=== PATIENT | male | born 1945 | race Caucasian/White ===

== ENCOUNTER 2016-05-30 16:37 | Emergency (ER) | payer OTHER ==
[~2016-05-30] VITALS: Ht 175.3 cm; Wt 84.4 kg
[~2016-05-30 16:37] MED LIST: ASPEC81 PO; METH5TAB63 PO; PRVC20 PO
[2016-05-30 16:55] VITALS: TEMP 36.8; Ht 175.3 cm; Wt 84.4 kg
[2016-05-30] MEDS ORDERED: ASPI81TA21 PO (17:11)
[2016-05-30] MEDS ORDERED: PRAV40TA2 PO (17:11)
[2016-05-30] MEDS ORDERED: SODIUM CHLORIDE 0.9% 1000ML 1,000 ML IV STA (17:17)
[2016-05-30] MEDS ORDERED: SODIUM CHLORIDE 0.9% 500ML 500 ML IV STA ×2 (17:17→18:21)
--- NOTE | 2016-05-30 17:21 | EMERGENCY ROOM VISIT NOTE ---
History Report prepared by Ollie: Galen Arrington Under the Supervision of: Dr. King Villagomez M.D. First contact with patient: 17:09 Chief Complaint: WEAKNESS Stated Complaint: WEAKNESS Nursing Triage Summary: patient brought in by ems patient reports weakness of legs around 12:30 while he was clearing brush outside patient reports hx of arthritis in back History of Present Illness The patient is a 71 year old male who presents to the Emergency Room by EMS with complaints of persistent weakness beginning earlier today. He notes he did not feel weak this morning, but after doing some yard work for a couple hours, he noted feeling weak and "rubbery" from the hips on down. He adds that getting into his tractor became difficult, and that he was sweating while doing yard work. The patient denies having any weakness in his arms, and did not pass out or lose consciousness. He reports that he is not getting much quality sleep over the past few years as he wakes up throughout the night to take care of his dogs. He denies having any chest pain, shortness of breath, vomiting, dark or blood stools, or dark urine. He reports that he does not drink as much fluids as he should. The patient states having a history of arthritis. Source of History: patient Onset: earlier today Position: leg (bilateral), other (hips bilaterally) Quality: other (weakness; "rubbery") Timing: other (persistent) Associated Symptoms: No LOC, No SOB, No chest pain, No urinary symptoms (no dark colored urine), No vomiting, No weakness (in arms) Note: The patient denies having any dark or bloody stools. Review of Systems See HPI for pertinent positives & negatives. A total of 10 systems reviewed and were otherwise negative. Past Medical & Surgical Medical Problems: (1) Esophageal Reflux (2) Headache (3) Hypertension Nos (4) Neuralgia/Neuritis Nos (5) Palpitations Family History FHx: hypertension Social History Smoking Status: Former Smoker Alcohol Use: none Drug Use: none Marital Status: Housing Status: lives with family Occupation Status: retired Current/Historical Medications Scheduled Aspirin Enteric Coated (Ecotrin Or Generic), 81 MG PO DAILY B-Complex Vitamins (Vitamin B Complex), 1 TAB PO QAM Pbblujdnjy-Xcnhpyiyloyiu-Yktel (Butalbital/APAP/Caffeine 50-300-40 mg), 1 TAB PO PRN UD Famotidine (Famotidine), 20 MG PO QAM Fish Oil ([place]-3), 1 CAP PO BID Methimazole (Tapazole), 5 PO BID Metoprolol Succinate (Metoprolol Succinate ER), 37.5 MG PO QPM Multivitamin (Multivitamin), 1 TAB PO DAILY Pravastatin Sodium (Pravastatin Sodium), 40 MG PO DAILY Tamsulosin HCl (Tamsulosin HCl), 0.4 MG PO DAILY Allergies Coded Allergies: Morphine (Verified Allergy, Mild, `, 09/21/14) Simvastatin (Verified Allergy, Unknown, MYALGIA, 05/30/16) Physical Exam Vital Signs Date Time Temp Pulse Resp B/P Pulse Ox O2 Delivery O2 Flow Rate FiO2 05/30/16 19:28 54 18 146/81 99 05/30/16 17:40 49 142/70 54 148/78 62 115/75 05/30/16 17:08 56 05/30/16 16:55 36.8 58 18 169/74 100 Room Air Physical Exam GENERAL: Patient is in no acute distress. HEENT: No acute trauma, normocephalic atraumatic, mucous membranes moist, no nasal congestion, no scleral icterus. NECK: No stridor, no adenopathy, no meningismus, trachea is midline. LUNGS: Clear to auscultation bilaterally, no wheeze, no rhonchi, breath sounds equal. HEART: Without murmurs gallops or rubs, regular rate and rhythm. ABDOMEN: Soft, nontender, bowel sounds positive, no hernias, no peritonitis. EXTREMITIES: No cyanosis or edema, full range of motion of all the joints without pain or difficulty, no signs for acute trauma. NEUROLOGIC: Oriented x 3, no acute motor or sensory deficits, no focal weakness. No cerebellar dysfunction or pronator drift. No speech slur or facial droop. SKIN: No rash, no jaundice, no diaphoresis. Medical Decision & Procedures ER Provider Diagnostic Interpretation: Orthostatic vital signs are positive. X ray results and stated below per my interpretation and radiologist interpretation. Other radiology results and stated below per my review and radiologist interpretation: CHEST ONE VIEW PORTABLE FINDINGS: The cardiac and mediastinal contours are normal. There is no evidence of focal pulmonary consolidation. There is no evidence of failure. No pleural effusions are visualized. IMPRESSION: No active disease in the chest. Electronically signed by: Golden Jordan M.D. 05/30/2016 6:24 PM Dictated Date/Time: 05/30/2016 6:24 PM Laboratory Results 05/30/16 17:39 Red Blood Count 4.56, Mean Corpuscular Volume 93.4, Mean Corpuscular Hemoglobin 32.9, Mean Corpuscular Hemoglobin Concent 35.2, Mean Platelet Volume 10.3, Neutrophils (%) (Auto) 59.4, Lymphocytes (%) (Auto) 26.9, Monocytes (%) (Auto) 10.8, Eosinophils (%) (Auto) 2.4, Basophils (%) (Auto) 0.4, Neutrophils # (Auto ) 4.02, Lymphocytes # (Auto) 1.82, Monocytes # (Auto) 0.73, Eosinophils # (Auto ) 0.16, Basophils # (Auto) 0.03 05/30/16 17:39 Test 05/30/16 16:41 05/30/16 17:39 Urine Color YELLOW Urine Appearance CLEAR (CLEAR) Urine pH 7.0 (4.5-7.5) Urine Specific [place] 1.011 (1.000-1.030) Urine Protein NEG (NEG) Urine Glucose (UA) NEG (NEG) Urine Ketones NEG (NEG) Urine Occult Blood NEG (NEG) Urine Nitrite NEG (NEG) Urine Bilirubin NEG (NEG) Urine Urobilinogen NEG (NEG) Urine Leukocyte Esterase NEG (NEG) White Blood Count 6.77 K/uL (4.8-10.8) Red Blood Count 4.56 M/uL (4.7-6.1) Hemoglobin 15.0 g/dL (14.0-18.0) Hematocrit 42.6 % (42-52) Mean Corpuscular Volume 93.4 fL (80-100) Mean Corpuscular Hemoglobin 32.9 pg (25-34) Mean Corpuscular Hemoglobin Concent 35.2 g/dl (32-36) Platelet Count 171 K/uL (130-400) Mean Platelet Volume 10.3 fL (7.4-10.4) Neutrophils (%) (Auto) 59.4 % Lymphocytes (%) (Auto) 26.9 % Monocytes (%) (Auto) 10.8 % Eosinophils (%) (Auto) 2.4 % Basophils (%) (Auto) 0.4 % Neutrophils # (Auto) 4.02 K/uL (1.4-6.5) Lymphocytes # (Auto) 1.82 K/uL (1.2-3.4) Monocytes # (Auto) 0.73 K/uL (0.11-0.59) Eosinophils # (Auto) 0.16 K/uL (0-0.5) Basophils # (Auto) 0.03 K/uL (0-0.2) RDW Standard Deviation 43.2 fL (36.4-46.3) RDW Coefficient of Variation 12.7 % (11.5-14.5) Immature Granulocyte % (Auto) 0.1 % Immature Granulocyte # (Auto) 0.01 K/uL (0.00-0.02) Anion Gap 6.0 mmol/L (3-11) Est Creatinine Clear Calc Drug Dose 44.5 ml/min Estimated GFR () 53.1 Estimated GFR (Non- 45.9 BUN/Creatinine Ratio 13.0 (10-20) Calcium Level 9.2 mg/dl (8.5-10.1) Total Bilirubin 0.5 mg/dl (0.2-1) Aspartate Amino Transf (AST/SGOT) 18 U/L (15-37) Alanine Aminotransferase (ALT/SGPT) 23 U/L (12-78) Alkaline Phosphatase 62 U/L (45-117) Total Protein 7.9 gm/dl (6.4-8.2) Albumin 4.3 gm/dl (3.4-5.0) Globulin 3.6 gm/dl (2.5-4.0) Albumin/Globulin Ratio 1.2 (0.9-2) Thyroid Stimulating Hormone (TSH) 2.420 uIu/ml (0.300-4.500) Laboratory results reviewed by me. Medications Administered Medications (Trade) Dose Ordered Sig/Antoine Route Start Time Stop Time Status Last Admin Dose Admin Sodium Chloride 500 ml @ 999 mls/hr Q31M STAT IV 05/30/16 17:17 05/30/16 17:47 DC 05/30/16 17:17 999 MLS/HR Sodium Chloride 1,000 ml @ 125 mls/hr Q8H STAT IV 05/30/16 17:17 05/30/16 21:53 DC 05/30/16 17:17 125 MLS/HR Sodium Chloride (Nss 500ml) 500 ml @ 999 mls/hr Q31M STAT IV 05/30/16 18:21 05/30/16 18:51 DC 05/30/16 18:21 999 MLS/HR ECG Indication: weakness Rate (beats per minute): 52 Rhythm: sinus bradycardia Findings: no acute ischemic change, no ectopy ED Course 1711: The patient was evaluated in room C5. A complete history and physical exam was performed. 1716: Ordered NSS 1,000 ml @ 125 mls/hr IV, and NSS 500 ml 999 mls/hr IV. 1820: Ordered NSS 500 ml @ 999 mls/hr IV. 1909: I updated the patient. 1919: Reevaluated the patient. Discussed results and discharge instructions: He verbalized understanding and agreement. The patient is ready for discharge. Medical Decision Differentials include dehydration, electrolyte imbalance, anemia, cardiac ischemia, dysrhythmia, UTI, and ND. There is no leukocytosis or concerning anemia. Renal panel testing shows some mild renal insufficiency but this appears baseline looking back at previous testing. No significant electrolyte abnormality requiring correction. There was no hepatitis. The patient appears to be in a euthyroid state. EKG shows a sinus bradycardia, no acute ischemia. Chest film shows no pneumonia or CHF. Orthostatic vital signs were positive. Urinalysis does not show evidence for infection. The patient received over 1 L of IV saline, he feels markedly better. He has no focal neurologic deficits on exam. He is not febrile or toxic. I do think he can be discharged home. He was encouraged to stay better hydrated. He will follow with his doctor's office. He will return here for worsening symptoms. Impression Primary Impression: Weakness Additional Impression: Dehydration Scribe Attestation The scribe's documentation has been prepared under my direction and personally reviewed by me in its entirety. I confirm that the note above accurately reflects all work, treatment, procedures, and medical decision making performed by me. Departure Information Dispostion Home / Self-Care Referrals Sivakumar Lopez M.D. (PCP) Patient Instructions My [facility] Additional Instructions stay better hydrated as we discussed all lab testing was ok follow with bronwyn geiger for a recheck return if worsening Problem Qualifiers
[2016-05-30] MEDS ORDERED: BUTA1CAP20 PO (17:28)
[2016-05-30 17:49] LABS: URINE APPEARANCE CLEAR (CLEAR); URINE BILIRUBIN NEG (NEG); URINE COLOR YELLOW; URINE NITRITE NEG (NEG); URINE SPECIFIC GRAVITY 1.011 (1.000-1.030); UROBILINOGEN NEG (NEG); ZZUR CULT IF INDIC CLEAN CATCH NO
[2016-05-30 17:51] LABS: MANUAL MICROSCOPIC REQUIRED? NO; REVIEW REQ? NO
[2016-05-30] MEDS ORDERED: B-COTAB18 PO (17:58)
[2016-05-30 18:02] LABS: BASO % 0.4 %; BASO ABS # 0.03 K/uL (0-0.2); COMPLETE YES; EOS % 2.4 %; HEMATOCRIT 42.6 % (42-52); IG% 0.1 %; LYMPH % 26.9 %; LYMPH ABS # 1.82 K/uL (1.2-3.4); MEAN CELL VOLUME 93.4 fL (80-100); MEAN CORPUSCULAR HEMOGLOBIN 32.9 pg (25-34); MEAN CORPUSCULAR HGB CONC 35.2 g/dl (32-36); MEAN PLATELET VOLUME 10.3 fL (7.4-10.4); MONO % 10.8 %; NEUT % 59.4 %; PLATELET COUNT 171 K/uL (130-400); RED BLOOD COUNT 4.56 M/uL (4.7-6.1); WHITE BLOOD COUNT 6.77 K/uL (4.8-10.8)
[2016-05-30 18:25] LABS: CALCIUM 9.2 mg/dl (8.5-10.1); CREATININE 1.5 mg/dl (0.60-1.40); POTASSIUM 4.3 mmol/L (3.5-5.1)
--- NOTE | 2016-05-30 18:26 | DIAGNOSTIC IMAGING REPORT ---
CHEST ONE VIEW PORTABLE CLINICAL HISTORY: Altered mental status. Weakness. COMPARISON STUDY: 09/21/2014 FINDINGS: The cardiac and mediastinal contours are normal. There is no evidence of focal pulmonary consolidation. There is no evidence of failure. No pleural effusions are visualized.[ IMPRESSION: No active disease in the chest. Electronically signed by: Golden Jordan M.D. 05/30/2016 6:24 PM Dictated Date/Time: 05/30/2016 6:24 PM
[2016-05-30 18:41] LABS: ALB/GLOB RATIO 1.2 (0.9-2); THYROID STIMULATING HORMONE 2.42 uIu/ml (0.300-4.500)
[2016-05-30] MEDS ORDERED: OMEG10007 PO (19:06)
[2016-05-30] MEDS ORDERED: MULT-506 PO (19:06)
[2016-05-30] MEDS ORDERED: FAMO1TAB47 PO (19:19)
[2016-05-30] MEDS ORDERED: FLM4 PO (19:19)
[2016-05-30 19:28] VITALS: BP 146/81; PULSE 54; O2SAT 99
[2016-05-30] MEDS ORDERED: TPRSR/25 PO (21:11)
== END 2016-05-30 19:29 | disposition home or self-care (01) ==
LOC: EDBD 16:37 → C.EDC 16:40
DX: R53.1 Weakness (principal); E86.0 Dehydration; R29.898 Other symptoms and signs involving the musculoskeletal system; K21.9 Gastro-esophageal reflux disease without esophagitis; I10 Essential (primary) hypertension; Z79.899 Other long term (current) drug therapy; Z79.82 Long term (current) use of aspirin; Z87.891 Personal history of nicotine dependence; Z82.49 Family history of ischemic heart disease and other diseases of the circulatory system

== ENCOUNTER 2016-06-01 10:00 | Emergency (ER) | payer OTHER ==
[~2016-06-01] VITALS: Ht 172.7 cm; Wt 84.9 kg
[~2016-06-01 10:00] MED LIST changes: -ASPEC81 PO; +ASPI81TA21 PO; +B-COTAB18 PO; +BUTA1CAP20 PO; +FAMO1TAB47 PO; +FLM4 PO; +MULT-506 PO; +OMEG10007 PO; +PRAV40TA2 PO; -PRVC20 PO; +TPRSR/25 PO
[2016-06-01 10:11] VITALS: TEMP 36.5; Ht 172.7 cm; Wt 84.9 kg
--- NOTE | 2016-06-01 10:53 | EMERGENCY ROOM VISIT NOTE ---
History Report prepared by Ollie: Alfonzo Gonzalez Under the Supervision of: Dr. Bryson Peters M.D. First contact with patient: 10:34 Chief Complaint: WEAKNESS Stated Complaint: WEAKNESS History of Present Illness The patient is a 71 year old male who presents to the Emergency Room with complaints of constant weakness for the past few days. The patient states that he has additionally been feeling pressure around his eyes and cheeks. The patient says that from his hips down he has felt weak. The patient denies any rhinorrhea, urinary symptoms, and any recent falls. He states that he had left eye surgery recently. The patient states that the people around him have been sick. He denies any family history of muscle diseases. Source of History: patient Onset: few days ago Position: other (global) Quality: other (weakness) Timing: constant Associated Symptoms: No urinary symptoms Note: Associated symptoms: Pressure around his eyes and cheeks Review of Systems See HPI for pertinent positives & negatives. A total of 10 systems reviewed and were otherwise negative. Past Medical & Surgical Medical Problems: (1) Esophageal Reflux (2) Headache (3) Hypertension Nos (4) Neuralgia/Neuritis Nos (5) Palpitations Family History FHx: hypertension Social History Smoking Status: Former Smoker Alcohol Use: none Drug Use: none Marital Status: Housing Status: lives with family Occupation Status: retired Current/Historical Medications Scheduled Aspirin Enteric Coated (Ecotrin Or Generic), 81 MG PO DAILY B-Complex Vitamins (Vitamin B Complex), 1 TAB PO QAM Puwvcyqrap-Byocxvaggnzmk-Isptk (Butalbital/APAP/Caffeine 50-300-40 mg), 1 TAB PO PRN UD Famotidine (Famotidine), 20 MG PO QAM Fish Oil ([place]-3), 1 CAP PO BID Methimazole (Tapazole), 5 PO BID Metoprolol Succinate (Metoprolol Succinate ER), 37.5 MG PO QPM Multivitamin (Multivitamin), 1 TAB PO DAILY Pravastatin Sodium (Pravastatin Sodium), 40 MG PO DAILY Tamsulosin HCl (Tamsulosin HCl), 0.4 MG PO DAILY Allergies Coded Allergies: Morphine (Verified Allergy, Mild, `, 09/21/14) Simvastatin (Verified Allergy, Unknown, MYALGIA, 05/30/16) Physical Exam Vital Signs Date Time Temp Pulse Resp B/P Pulse Ox O2 Delivery O2 Flow Rate FiO2 06/01/16 12:14 50 18 97/71 98 Room Air 06/01/16 10:36 68 06/01/16 10:11 36.5 60 18 150/74 97 Room Air Physical Exam GENERAL: Patient is well appearing and in minimal distress. HEENT: No acute trauma, normocephalic atraumatic, mucous membranes moist, no nasal congestion, no scleral icterus. NECK: No stridor, no adenopathy, no meningismus, trachea is midline. LUNGS: No dyspnea. Clear to auscultation and equal bilaterally. No wheeze, no rhonchi. HEART: Regular rate and rhythm. No murmurs, rubs, gallops appreciated. ABDOMEN: Soft, nontender, bowel sounds positive, no masses appreciated, no peritonitis. BACK: No midline tenderness, no CVA tenderness EXTREMITIES: Normal motion all extremities, no cyanosis, no edema. NEUROLOGIC: Alert and oriented, no acute motor or sensory deficits, no focal weakness, cranial nerves grossly intact. SKIN: No rash, no jaundice, no diaphoresis. Medical Decision & Procedures ER Provider Diagnostic Interpretation: CT results as stated below per interpretation by me and the radiologist: CT HEAD WITHOUT CONTRAST (CT) CLINICAL HISTORY: Generalized Weakness COMPARISON STUDY: 09/21/2014 TECHNIQUE: Axial CT of the brain is performed from the vertex to the skull base. IV contrast was not administered for this examination. CT DOSE: 614.27 mGy.cm FINDINGS: No intra or extra-axial mass lesions are visualized. There is no CT evidence of acute cortical infarction. There is no evidence of midline shift. There is no acute hemorrhage. No calvarial fractures are visualized. There are minimal white matter hypodensities likely on a small vessel basis. There is no evidence of pathologic ventricular dilatation. There is no evidence of acute sinusitis IMPRESSION: No acute intracranial findings Electronically signed by: Golden Jordan M.D. 06/01/2016 11:23 AM Dictated Date/Time: 06/01/2016 11:23 AM Laboratory Results 06/01/16 10:34 Red Blood Count 4.66, Mean Corpuscular Volume 92.3, Mean Corpuscular Hemoglobin 31.8, Mean Corpuscular Hemoglobin Concent 34.4, Mean Platelet Volume 10.0, Neutrophils (%) (Auto) 56.9, Lymphocytes (%) (Auto) 28.2, Monocytes (%) (Auto) 11.2, Eosinophils (%) (Auto) 3.0, Basophils (%) (Auto) 0.5, Neutrophils # (Auto ) 3.21, Lymphocytes # (Auto) 1.59, Monocytes # (Auto) 0.63, Eosinophils # (Auto ) 0.17, Basophils # (Auto) 0.03 06/01/16 10:34 Test 06/01/16 10:34 White Blood Count 5.64 K/uL (4.8-10.8) Red Blood Count 4.66 M/uL (4.7-6.1) Hemoglobin 14.8 g/dL (14.0-18.0) Hematocrit 43.0 % (42-52) Mean Corpuscular Volume 92.3 fL (80-100) Mean Corpuscular Hemoglobin 31.8 pg (25-34) Mean Corpuscular Hemoglobin Concent 34.4 g/dl (32-36) Platelet Count 176 K/uL (130-400) Mean Platelet Volume 10.0 fL (7.4-10.4) Neutrophils (%) (Auto) 56.9 % Lymphocytes (%) (Auto) 28.2 % Monocytes (%) (Auto) 11.2 % Eosinophils (%) (Auto) 3.0 % Basophils (%) (Auto) 0.5 % Neutrophils # (Auto) 3.21 K/uL (1.4-6.5) Lymphocytes # (Auto) 1.59 K/uL (1.2-3.4) Monocytes # (Auto) 0.63 K/uL (0.11-0.59) Eosinophils # (Auto) 0.17 K/uL (0-0.5) Basophils # (Auto) 0.03 K/uL (0-0.2) RDW Standard Deviation 42.9 fL (36.4-46.3) RDW Coefficient of Variation 12.8 % (11.5-14.5) Immature Granulocyte % (Auto) 0.2 % Immature Granulocyte # (Auto) 0.01 K/uL (0.00-0.02) Erythrocyte Sedimentation Rate 11 mm/hr (0-14) Anion Gap 4.0 mmol/L (3-11) Est Creatinine Clear Calc Drug Dose 54.5 ml/min Estimated GFR () 63.2 Estimated GFR (Non- 54.5 BUN/Creatinine Ratio 10.9 (10-20) Calcium Level 9.7 mg/dl (8.5-10.1) Phosphorus Level 2.9 mg/dl (2.5-4.9) Magnesium Level 2.2 mg/dl (1.8-2.4) Total Bilirubin 0.5 mg/dl (0.2-1) Direct Bilirubin 0.1 mg/dl (0-0.2) Aspartate Amino Transf (AST/SGOT) 19 U/L (15-37) Alanine Aminotransferase (ALT/SGPT) 25 U/L (12-78) Alkaline Phosphatase 65 U/L (45-117) Total Creatine Kinase 99 U/L (39-308) Troponin I < 0.015 ng/ml (0-0.045) C-Reactive Protein < 0.29 mg/dl (0-0.29) Total Protein 7.9 gm/dl (6.4-8.2) Albumin 4.2 gm/dl (3.4-5.0) Lipase 230 U/L (73-393) Laboratory results as reviewed by me. ECG Indication: weakness Rate (beats per minute): 53 Rhythm: sinus bradycardia Findings: no acute ischemic change, no ectopy ED Course 1037: The patient was evaluated in room B8. A complete history and physical exam was performed. 1207: Reevaluated the patient, and he states that he is feeling well, and he will follow up with his doctor this week. Discussed results and discharge instructions: He verbalized understanding and agreement. The patient is ready for discharge. Medical Decision Differential: Sepsis, Infectious (UTI/Pneumonia/Meningitis/etc), Metabolic/ Electrolyte Abnormality, Cardiac, Hepatic, Endocrine, Toxicologic, Neurologic, amongst other pathologies entertained. 71 yr old male arrives with complaint of generalized weakness. Still able to ambulate though notes he just feels weak and rubbery, mostly in legs. No back pain nor evidence of spinal pathology. Good strength bilateral legs without urine nor bowel issues. No evidence of rheumatic/inflammatory issue as with normal WBC/CRP this is highly unlikely. CT head is negative for acute findings. No evidence of sepsis. Stable and in no distress. No indication for admission at this time. This is second trip here with essentially unremarkable examination and labs. He already has a follow up appointment this week. Aware of symptoms requiring emergent return. Impression Primary Impression: Generalized weakness Scribe Attestation The scribe's documentation has been prepared under my direction and personally reviewed by me in its entirety. I confirm that the note above accurately reflects all work, treatment, procedures, and medical decision making performed by me. Departure Information Dispostion Home / Self-Care Referrals Sivakumar Lopez M.D. (PCP) Forms HOME CARE DOCUMENTATION FORM, IMPORTANT VISIT INFORMATION Patient Instructions ED Weakness Maci SANTANA [facility]
[2016-06-01 11:21] LABS: BASO % 0.5 %; BASO ABS # 0.03 K/uL (0-0.2); COMPLETE YES; IG% 0.2 %; LYMPH % 28.2 %; LYMPH ABS # 1.59 K/uL (1.2-3.4); MEAN CELL VOLUME 92.3 fL (80-100); MEAN CORPUSCULAR HEMOGLOBIN 31.8 pg (25-34); MEAN CORPUSCULAR HGB CONC 34.4 g/dl (32-36); MONO % 11.2 %; NEUT % 56.9 %; PLATELET COUNT 176 K/uL (130-400); RED BLOOD COUNT 4.66 M/uL (4.7-6.1); WHITE BLOOD COUNT 5.64 K/uL (4.8-10.8)
--- NOTE | 2016-06-01 11:25 | DIAGNOSTIC IMAGING REPORT ---
CT HEAD WITHOUT CONTRAST (CT) CLINICAL HISTORY: Generalized Weakness COMPARISON STUDY: 09/21/2014 TECHNIQUE: Axial CT of the brain is performed from the vertex to the skull base. IV contrast was not administered for this examination. CT DOSE: 614.27 mGy.cm FINDINGS: No intra or extra-axial mass lesions are visualized. There is no CT evidence of acute cortical infarction. There is no evidence of midline shift. There is no acute hemorrhage. No calvarial fractures are visualized. There are minimal white matter hypodensities likely on a small vessel basis. There is no evidence of pathologic ventricular dilatation. There is no evidence of acute sinusitis IMPRESSION: No acute intracranial findings Electronically signed by: Golden Jordan M.D. 06/01/2016 11:23 AM Dictated Date/Time: 06/01/2016 11:23 AM
[2016-06-01 11:43] LABS: BLOOD UREA NITROGEN 14 mg/dl (7-18); BUN/CREATININE RATIO 10.9 (10-20); C-REACTIVE PROTEIN < 0.29 mg/dl (0-0.29); CALCIUM 9.7 mg/dl (8.5-10.1); CARBON DIOXIDE 30 mmol/L (21-32); CHLORIDE 105 mmol/L (98-107); GLUCOSE 96 mg/dl (70-99); MAGNESIUM 2.2 mg/dl (1.8-2.4); POTASSIUM 4.2 mmol/L (3.5-5.1); SODIUM 139 mmol/L (136-145)
[2016-06-01 11:49] LABS: ALKALINE PHOSPHATASE 65 U/L (45-117); ALT/SGPT 25 U/L (12-78); AST/SGOT 19 U/L (15-37); PHOSPHORUS 2.9 mg/dl (2.5-4.9)
[2016-06-01 12:14] VITALS: BP 97/71; PULSE 50; O2SAT 98
== END 2016-06-01 12:30 | disposition home or self-care (01) ==
LOC: C.EDB 10:02
DX: R53.1 Weakness (principal); I10 Essential (primary) hypertension; K21.9 Gastro-esophageal reflux disease without esophagitis; Z87.891 Personal history of nicotine dependence; Z98.890 Other specified postprocedural states; Z82.49 Family history of ischemic heart disease and other diseases of the circulatory system; Z79.82 Long term (current) use of aspirin; Z79.899 Other long term (current) drug therapy

== ENCOUNTER → 2016-06-03 | Outpatient (CLI) | payer OTHER ==
[2016-06-03 11:40] LABS: ALT/SGPT 22 U/L (12-78); AST/SGOT 14 U/L (15-37); BLOOD UREA NITROGEN 17 mg/dl (7-18); BUN/CREATININE RATIO 12.9 (10-20); CALCIUM 9.5 mg/dl (8.5-10.1); CARBON DIOXIDE 31 mmol/L (21-32); CHLORIDE 104 mmol/L (98-107); CHOLESTEROL 193 mg/dl (0-200); GLUCOSE 101 mg/dl (70-99); POTASSIUM 4.2 mmol/L (3.5-5.1); SODIUM 139 mmol/L (136-145); TRIGLYCERIDES 152 mg/dl (0-150); VERY LOW DENSITY LIPOPROT CALC 30 mg/dl
[2016-06-03 11:49] LABS: ALB/GLOB RATIO 1.1 (0.9-2); ALKALINE PHOSPHATASE 64 U/L (45-117); CHOLESTEROL/HDL RATIO 3.8; HDL CHOLESTEROL 51 mg/dl; LDL CHOLESTEROL CALCULATED 112 mg/dl
== END | disposition home or self-care (01) ==
LOC: C.LABBC 07:32
PROVIDERS: ATTEND Internal Medicine
DX: E05.90 Thyrotoxicosis, unspecified without thyrotoxic crisis or storm (principal); N18.3 Chronic kidney disease, stage 3 (moderate)

== ENCOUNTER → 2016-12-19 | Outpatient (CLI) | payer OTHER ==
[2016-12-19 13:52] LABS: ALT/SGPT 24 U/L (12-78); AST/SGOT 19 U/L (15-37); BLOOD UREA NITROGEN 17 mg/dl (7-18); BUN/CREATININE RATIO 12.8 (10-20); CALCIUM 9.6 mg/dl (8.5-10.1); CARBON DIOXIDE 28 mmol/L (21-32); CHLORIDE 109 mmol/L (98-107); GLUCOSE 99 mg/dl (70-99); POTASSIUM 4.6 mmol/L (3.5-5.1); SODIUM 141 mmol/L (136-145)
[2016-12-19 14:02] LABS: ALB/GLOB RATIO 1.1 (0.9-2); ALKALINE PHOSPHATASE 60 U/L (45-117)
== END | disposition home or self-care (01) ==
LOC: C.LABBC 10:54
PROVIDERS: ATTEND Internal Medicine
DX: K21.9 Gastro-esophageal reflux disease without esophagitis (principal)

== ENCOUNTER → 2017-03-14 | Outpatient (CLI) | payer OTHER ==
[2017-03-14 13:43] LABS: BASO % 0.2 %; BASO ABS # 0.02 K/uL (0-0.2); COMPLETE YES; EOS % 2.5 %; HEMATOCRIT 41.7 % (42-52); IG% 0.2 %; LYMPH % 18.1 %; LYMPH ABS # 1.46 K/uL (1.2-3.4); MEAN CELL VOLUME 96.8 fL (80-100); MEAN CORPUSCULAR HEMOGLOBIN 32.9 pg (25-34); MEAN CORPUSCULAR HGB CONC 34.1 g/dl (32-36); MEAN PLATELET VOLUME 10.7 fL (7.4-10.4); MONO % 9.5 %; NEUT % 69.5 %; PLATELET COUNT 171 K/uL (130-400); RED BLOOD COUNT 4.31 M/uL (4.7-6.1); WHITE BLOOD COUNT 8.07 K/uL (4.8-10.8)
[2017-03-14 13:58] LABS: CREATININE, URINE 53.2 mg/dl; URINE PROTIEN/CREAT RATIO 0.2 (0-0.2); URINE TOTAL PROTEIN 8.3 mg/dl (0-11.9)
[2017-03-14 14:00] LABS: BLOOD UREA NITROGEN 22 mg/dl (7-18); BUN/CREATININE RATIO 16.5 (10-20); CALCIUM 9.2 mg/dl (8.5-10.1); CARBON DIOXIDE 29 mmol/L (21-32); CHLORIDE 108 mmol/L (98-107); CREATININE 1.36 mg/dl (0.60-1.40); GLUCOSE 91 mg/dl (70-99); MAGNESIUM 2.1 mg/dl (1.8-2.4); POTASSIUM 5.3 mmol/L (3.5-5.1); SODIUM 140 mmol/L (136-145)
[2017-03-14 14:17] LABS: URINE APPEARANCE CLEAR (CLEAR); URINE BILIRUBIN NEG (NEG); URINE COLOR YELLOW; URINE EPITHELIAL CELL AUTO 0-5 /lpf (0-5); URINE NITRITE NEG (NEG); URINE SPECIFIC GRAVITY 1.011 (1.000-1.030); UROBILINOGEN NEG (NEG)
[2017-03-14 14:19] LABS: MANUAL MICROSCOPIC REQUIRED? NO; REVIEW REQ? NO
[2017-03-17 16:38] LABS: ALBUMIN 4.4 G/DL (3.8-4.8); GAMMA GLOBULIN 1.1 G/DL (0.8-1.7); TOTAL PROTEIN 6.9 G/DL (6.2-8.3)
== END | disposition home or self-care (01) ==
LOC: C.LABBC 10:59
PROVIDERS: ATTEND Internal Medicine Nephrology
DX: N18.3 Chronic kidney disease, stage 3 (moderate) (principal)

== ENCOUNTER → 2017-06-04 | Outpatient (CLI) | payer OTHER ==
[2017-06-04 10:40] LABS: BASO % 0.4 %; BASO ABS # 0.02 K/uL (0-0.2); EOS % 3.9 %; EOS ABS # 0.22 K/uL (0-0.5); HEMATOCRIT 43.7 % (42-52); HEMOGLOBIN 15.1 g/dL (14.0-18.0); IG# 0.01 K/uL (0.00-0.02); LYMPH % 26.1 %; LYMPH ABS # 1.46 K/uL (1.2-3.4); MEAN CELL VOLUME 94.2 fL (80-100); MEAN CORPUSCULAR HEMOGLOBIN 32.5 pg (25-34); MEAN CORPUSCULAR HGB CONC 34.6 g/dl (32-36); MEAN PLATELET VOLUME 10.1 fL (7.4-10.4); MONO % 12.3 %; MONO ABS # 0.69 K/uL (0.11-0.59); NEUT % 57.1 %; PLATELET COUNT 197 K/uL (130-400); RED CELL DISTRIBUTION WIDTH CV 13.3 % (11.5-14.5); RED CELL DISTRIBUTION WIDTH SD 45.6 fL (36.4-46.3)
[2017-06-04 10:58] LABS: ALT/SGPT 22 U/L (12-78); AST/SGOT 15 U/L (15-37); BLOOD UREA NITROGEN 24 mg/dl (7-18); CALCIUM 9.4 mg/dl (8.5-10.1); CARBON DIOXIDE 32 mmol/L (21-32); CREATININE 1.38 mg/dl (0.60-1.40); GLUCOSE 103 mg/dl (70-99); POTASSIUM 4.4 mmol/L (3.5-5.1); SODIUM 139 mmol/L (136-145)
[2017-06-04 11:06] LABS: ALKALINE PHOSPHATASE 64 U/L (45-117); CHOLESTEROL 231 mg/dl (0-200); LDL CHOLESTEROL CALCULATED 148 mg/dl; TOTAL PROTEIN 7.6 gm/dl (6.4-8.2)
== END | disposition home or self-care (01) ==
LOC: C.LABBC 07:36
PROVIDERS: ATTEND Internal Medicine
DX: K21.9 Gastro-esophageal reflux disease without esophagitis (principal); E78.5 Hyperlipidemia, unspecified; M48.061 Spinal stenosis, lumbar region without neurogenic claudication; E05.90 Thyrotoxicosis, unspecified without thyrotoxic crisis or storm; J44.9 Chronic obstructive pulmonary disease, unspecified; M46.96 Unspecified inflammatory spondylopathy, lumbar region; N18.3 Chronic kidney disease, stage 3 (moderate); M25.512 Pain in left shoulder

== ENCOUNTER → 2017-06-10 | Outpatient (CLI) | payer OTHER ==
[2017-06-10 14:55] LABS: ALBUMIN 4.1 gm/dl (3.4-5.0); BLOOD UREA NITROGEN 22 mg/dl (7-18); CALCIUM 9.3 mg/dl (8.5-10.1); CARBON DIOXIDE 24 mmol/L (21-32); CREATININE 1.35 mg/dl (0.60-1.40); GLUCOSE 98 mg/dl (70-99); POTASSIUM 4.3 mmol/L (3.5-5.1); SODIUM 138 mmol/L (136-145)
[2017-06-10 14:56] LABS: PHOSPHORUS 2.8 mg/dl (2.5-4.9)
== END | disposition home or self-care (01) ==
LOC: C.LABBC 09:05
PROVIDERS: ATTEND Internal Medicine Nephrology
DX: N18.3 Chronic kidney disease, stage 3 (moderate) (principal)

== ENCOUNTER 2023-05-14 11:55 | Observation (INO) ==
--- NOTE | 2023-05-14 12:56 | XRay Report ---
XR chest 1V not portable HISTORY: 78 years-old Male Chest pain, nonspecific COMPARISON: 04/05/2023 TECHNIQUE: PA view of the chest FINDINGS: Cardiomediastinal and hilar silhouettes are within normal limits. No pneumothorax, pleural effusion o r airspace consolidation. Spondylotic spurring of the spine. Bones appear grossly intact. Mild upper prosthetic levoscoliosis. IMPRESSION: No acute process. ACT 112: Negative or not required by law. The above report was generated using voice recognition software. It may contain grammatical, syntax o r spelling errors. Electronically signed by: Rafy Ramos M.D. 05/14/2023 12:54 PM
[2023-05-14 12:57] LABS: Basophils # (auto) 0.02 K/uL (0.00-0.20); Basophils % (auto) 0.2 %; Eosinophils # (auto) 0.04 K/uL (0.00-0.50); Eosinophils % (auto) 0.3 %; Hematocrit (blood only) 41.7 % (42.0-52.0); Hemoglobin 14.2 g/dl (14.0-18.0); Immature Granulocytes # (auto) 0.07 K/uL (0.01-0.20); Immature Granulocytes % (auto) 0.6 %; Lymphocytes # (auto) 1.64 K/uL (1.20-3.40); Lymphocytes % (auto) 13.2 %; Mean Corpuscular Hemoglobin 32.3 pg (25.0-34.0); Mean Corpuscular Hgb Conc 34.1 g/dL (32.0-36.0); Monocytes # (auto) 1.28 K/uL (0.11-0.59); Monocytes % (auto) 10.3 %; Neutrophils # (auto) 9.38 K/uL (1.40-6.50); Neutrophils % (auto) 75.4 %; Platelet Count 232 K/uL (130-400); RDW Coefficient of Variation 13.1 % (11.5-14.5); RDW Standard Deviation 45.4 fL (36.4-46.3); Red Blood Count 4.39 M/uL (4.70-6.10); White Blood Count 12.43 K/ul (4.8-10.8)
[2023-05-14 13:11] LABS: Albumin Globulin Ratio 1.4 (0.9-2); Albumin Level 4.6 gm/dl (3.4-5.0); BUN Creatinine Ratio 22.8 (10-20); Bilirubin,Total 0.4 mg/dl (0.2-1.0); Calcium 10.1 mg/dl (8.6-10.3); Creatinine Clr Calc Pharmacy 44.1 ml/min; Est GFR (African American) 61.9 ml/min; Est GFR (Non-African American) 53.4 ml/min; Globulin 3.2 gm/dl (2.5-4.0); Potassium 4.9 mmol/L (3.5-5.1); Total Protein 7.8 gm/dl (6.0-8.3)
[2023-05-14 13:15] LABS: Troponin I High Sensitivity 11.2 pg/ml (0-20)
[2023-05-14 13:26] LABS: Partial Thromboplastin Time 27 Seconds (21-31); Prothrombin Time 10.7 Seconds (9.0-12.0)
--- NOTE | 2023-05-14 15:02 | Emergency Department Note ---
Impression & Plan Exertional chest pain ED Provider Note NAME: CARLOS VALVERDE AGE: 78 SEX: M : 1945 ARRIVES VIA: Walk-In INFORMANT: Patient, ED PROVIDER(S): Rasheed Yuan MD CHIEF COMPLAINT: Chest pain, outpatient referral MEDICAL DECISION MAKING: Patient presents due to concern for exertional chest pain that improved with rest some seen in the outpatient setting referred here for further evaluation treatment due to concern for symptoms as well as progressive EKG changes. IV was established and blood work was obtained. Patient's blood work shows a white count of 12 but denies any infectious symptoms. Normal hemoglobin and platelet count. The patient's kidney function creatinine 1.27. Initial troponin negative. Reviewed the patient's EKG does show worsening T wave versions in the lateral and high lateral leads from comparison EKG from April 05 certainly more pronounced in the lateral leads from comparison March 01. Given the patient's exertional symptoms and concern for [place] angina patient was ordered aspirin-itis with the on-call hospital service Dr. Grace and the patient was admitted to the medicine service. Discussion w/ other healthcare providers: Dr. Grace inpatient medicine service Prior /Outside records reviewed: None Differential diagnosis: Cardiac ischemia, aortic dissection, pulmonary embolism, pneumothorax, pneumonia, pericarditis, myocarditis, GERD, cholecystitis, pancreatitis, musculoskeletal, as well as other pathologies were considered. Diagnostics, as interpreted by me: ECG: Sinus bradycardia, rate of 57, normal intervals, normal axis, T wave versions noted in the lateral and high lateral leads. Peaked Ts noted anteriorly. Cardiac monitoring: An order was placed for continuous cardiac monitoring. The monitor shows a rate of 62 with sinus rhythm. Patient was placed on pulse oximetry Medical decision rules: Heart score Imaging studies: I informally interpreted the patient's chest x-ray which does not show obvious pneumonia or pneumothorax with formal report to follow. HPI: Patient presents due to concern for chest pain. The patient states that he has suffered from chest pain in the past but seem to really "catch his attention" yesterday. The patient states that he was going up an incline where he got associated chest tightness in the center of his chest as he was out with his dogs and then subsequently worsened his symptoms but seem to improve with rest. Patient denies any cough or fever no leg swelling. The patient was seen in his primary care office today reviewed his EKG and discussed the symptoms and referred him here for further evaluation. Patient denies any leg swelling or calf pain. No recent surgeries procedures or hospitalizations. PAST MEDICAL HISTORY: See Below PAST SURGICAL HISTORY: See Below SOCIAL HISTORY: See Below HOME MEDICATIONS: See Below ALLERGIES: See Below VITALS: See Below PHYSICAL EXAMINATION: GENERAL: NAD, non-toxic. EYE EXAM: Normal conjunctiva. PERRL, no anisocoria and EOM's grossly intact w/o pain. OROPHARYNX: Moist mucus membranes, grossly normal dentition. NECK: Trachea midline, no stridor. Supple, no nuchal rigidity, no adenopathy, non-tender. No signs of meningismus. FROM of the neck with good chin to chest and neck extension. LUNGS: Clear to auscultation. Normal chest wall mechanics. HEART: NSR, no MRG. ABDOMEN: Abdomen soft, non-tender, no masses, no rebound or guarding. BACK: No CVA TTP. SKIN: No rashes and no bruising. UPPER EXTREMITIES: Upper extremities are grossly normal. LOWER EXTREMITIES: Grossly normal, no edema. Negative Homans' sign bilaterally. NEURO EXAM: A&O x3, cranial nerves II-XII grossly intact, normal speech, moves all 4 extremities. Past Med/Surg History Medical History Lumbosacral facet joint syndrome Coccyx pain Lumbar compression fracture Lumbar spondylosis Claustrophobia Cancer Melanoma s/p excision (back) Osteoarthritis BPH (benign prostatic hyperplasia) Hyperlipidemia Migraine Hx Lumbar canal stenosis Hyperthyroidism on Methimazole Stage 3 chronic kidney disease Arthritis Mitral valve prolapse Per patient, no recent echo, no murmur noted per multiple [facility] anesthesia evaluations (most recently 01/18/20) Acid reflux Surgical History S/P epidural steroid injection History of esophagogastroduodenoscopy (EGD) History of cholecystectomy History of colonoscopy with polypectomy 2020 History of wisdom tooth extraction Family History Mother Myocardial infarction Hypertension Father Kidney disease Brother Dyslipidemia Atrial fibrillation Other No family history of adverse response to anesthesia No pertinent family history Denies family history of Ovarian cancer Prostate cancer Diabetes Breast cancer Lung cancer Colorectal cancer Stroke Social History Smoking Status: Former smoker Tobacco Type: Pipe Second Hand Exposure: Yes (SPOUSE/ SON IN LAW SMOKED); Do You Dip or Chew Tobacco: No; Hx Alcohol Use: No Hx Substance Use: No Preferred Language: Brazilian Communication Ability: Effective Visual Impairment: No Limitations Hearing Ability: Normal Computer Methods Analyst Required: No Beliefs That Will Affect Care: None marital status: / Current Living Situation: Alone Current Living Situation Comment: SON IN LAW AND DAUGHTER current occupational status: retired How many Children do You have: 2 Other Information That Helps Us Care for You: No Feels Safe at Home: Yes Safety Concerns: Feels Safe At This Time Childhood Exposure to Second-Hand Smoke: Yes caffeine: Yes Dental Care, Regularly: Yes Physical Activity Frequency: 1-2 Times per Week Seatbelt Use: always Sunscreen Use: No Assistive Devices: None Allergies Allergies Allergy/AdvReac Type Severity Reaction Status Date / Time morphine Allergy Severe Anaphylaxis Verified 05/14/23 16:42 simvastatin AdvReac Intermediate MYALGIA Verified 05/14/23 16:42 Home Meds Home Medications Medication Instructions Recorded Confirmed omega 3 350 mg-dha 235 mg-epa 90 1 tab PO BID 02/04/18 05/14/23 mg-fish oil 597 mg capsule,delay rel ([place]-3) aspirin 81 mg tablet,delayed 81 mg PO QAM 01/11/20 05/14/23 release ([place] Low Dose Aspirin) cholecalciferol (vitamin D3) 25 25 mcg PO DAILY 06/12/21 05/14/23 mcg (1,000 unit) capsule B-complex with vitamin C 1 tab PO DAILY 02/28/23 05/14/23 methimazole 5 mg tablet 5 mg PO Q OTHER DAY 02/28/23 05/14/23 metoprolol succinate 25 mg 37.5 mg PO QPM 02/28/23 05/14/23 tablet,extended release 24 hr omeprazole 40 mg capsule,delayed 40 mg PO QAM 02/28/23 05/14/23 release Previous Rx's Medication Instructions Recorded valsartan 160 mg tablet 160 mg PO DAILY #90 tabs 04/18/23 pravastatin 80 mg tablet 80 mg PO QPM #90 tabs 01/25/24 Results & Data (ED) Vital Signs Vital Signs - 24 hr 05/14/23 12:13 Temperature 36.5 C Temperature Source Temporal Artery Scan Pulse Rate 78 Respiratory Rate 18 Respiratory Depth Normal Blood Pressure 191/87 H Blood Pressure Mean 121 Blood Pressure Position Sitting Pulse Oximetry 99 Oxygen Delivery Method Room Air Sepsis Recent Fever Within 48 Hours No Sepsis New/Unexplained Change in Mental Status No Sepsis Action Taken by Nursing No Action Required Home Medications Current Medication List: was personally reviewed by me Laboratory Data Attestation: I reviewed the patient's lab results. 05/15/23 06:15 05/15/23 06:15 Lab Results 05/14/23 Range/Units 12:33 WBC 12.43 H (4.8-10.8) K/ul RBC 4.39 L (4.70-6.10) M/uL Hgb 14.2 (14.0-18.0) g/dl Hct 41.7 L (42.0-52.0) % MCV 95.0 (80.0-100.0) fL MCH 32.3 (25.0-34.0) pg MCHC 34.1 (32.0-36.0) g/dL RDW Std Deviation 45.4 (36.4-46.3) fL RDW Coeff of Mei 13.1 (11.5-14.5) % Plt Count 232 (130-400) K/uL MPV 10.0 (9.4-12.4) fL Immature Gran % (Auto) 0.6 % Neut % (Auto) 75.4 % Lymph % (Auto) 13.2 % Richardson % (Auto) 10.3 % Eos % (Auto) 0.3 % Baso % (Auto) 0.2 % Neut # (Auto) 9.38 H (1.40-6.50) K/uL Lymph # (Auto) 1.64 (1.20-3.40) K/uL Richardson # (Auto) 1.28 H (0.11-0.59) K/uL Eos # (Auto) 0.04 (0.00-0.50) K/uL Baso # (Auto) 0.02 (0.00-0.20) K/uL Immature Gran # (Auto) 0.07 (0.01-0.20) K/uL PT 10.7 (9.0-12.0) Seconds INR 1.0 (0.9-1.1) APTT 27 (21-31) Seconds PTT Ratio 1.0 Sodium 140 (136-145) mmol/L Potassium 4.9 (3.5-5.1) mmol/L Chloride 106 (98-107) mmol/L Carbon Dioxide 27 (21-32) mmol/L Anion Gap 7 (3-11) BUN 29 H (6-23) mg/dl Creatinine 1.27 (0.6-1.4) mg/dl Est Cr Clr Drug Dosing 44.1 ml/min Est GFR ( Amer) 61.9 ml/min Est GFR (Non-Af Amer) 53.4 ml/min BUN/Creatinine Ratio 22.8 H (10-20) Glucose 102 H (70-99(Fasting)) mg/dl Calcium 10.1 (8.6-10.3) mg/dl Total Bilirubin 0.4 (0.2-1.0) mg/dl AST 19 (13-39) U/L ALT 18 (7-52) U/L Alkaline Phosphatase 47 (34-104) U/L Troponin I High Sens 11.2 (0-20) pg/ml Total Protein 7.8 (6.0-8.3) gm/dl Albumin 4.6 (3.4-5.0) gm/dl Globulin 3.2 (2.5-4.0) gm/dl Albumin/Globulin Ratio 1.4 (0.9-2) Administered Medications Metoprolol Succinate (Metoprolol Succ 25mg Ext Rel Tab) 37.5 mg PO QPM [facility] Stop: 06/13/23 21:14 Last Admin: 05/14/23 21:21 Dose: Not Given Documented By: [facility] Pravastatin Sodium (Pravastatin Sod 40 Mg Tab) 80 mg PO QPM DI Stop: 06/13/23 21:14 Last Admin: 05/14/23 22:27 Dose: 80 mg Documented By: [facility] Discontinued Medications Aspirin (Aspirin Chew 324 Mg) 324 mg PO NOW STA Stop: 05/14/23 16:04 Last Admin: 05/14/23 16:13 Dose: 324 mg Documented By: ML Imaging Data Radiologist's Impression: Chest X-Ray 05/14/23 12:18 XR chest 1V not portable HISTORY: 78 years-old Male Chest pain, nonspecific COMPARISON: 04/05/2023 TECHNIQUE: PA view of the chest FINDINGS: Cardiomediastinal and hilar silhouettes are within normal limits. No pneumothorax, pleural effusion or airspace consolidation. Spondylotic spurring of the spine. Bones appear grossly intact. Mild upper prosthetic levoscoliosis. IMPRESSION: No acute process. ACT 112: Negative or not required by law. The above report was generated using voice recognition software. It may contain grammatical, syntax or spelling errors. Electronically signed by: Rafy Ramos M.D. 05/14/2023 12:54 PM Discharge Plan Visit Data Chief Complaint: Referred by Doctor Stated Complaint: ABNORMAL EKG ED Provider: Rasheed Yuan Discharge Problem: Exertional chest pain Patient Disposition: Admitted As Inpatient Discharge Instructions Interventions: ED Discharge Assessment Last Done: 05/14/23 18:38
--- NOTE | 2023-05-14 15:08 | Electrocardiogram Report ---
Test Reason : Blood Pressure : / mmHG Vent. Rate : 057 BPM Atrial Rate : 057 BPM P-R Int : 148 ms QRS Dur : 070 ms QT Int : 406 ms P-R-T Axes : 038 013 089 degrees QTc Int : 395 ms Sinus bradycardia T wave abnormality, consider lateral ischemia Abnormal ECG When compared with ECG of 05-APR-2023 14:05, No significant change was found Confirmed by Jose Johnson ([id number]) on 05/14/2023 3:08:16 PM Referred By: Confirmed By:Jose Johnson
[2023-05-14] MEDS: ASPIRIN CHEW 324 MG PO STA (16:13)
--- NOTE | 2023-05-14 16:13 | History & Physical Report ---
Date of Service May 14, 2023 Assessment & Plan (1) Exertional chest pain: Plan: Some concern for EKG changes however these TWI were also present on prior EKGs in February 2018 and Apr 2013 and appear to be lead placement related given similarities in QRS complexes with these EKGs compared to EKGs in interim. Reassuringly he has also had exertion not related to cold air when he is not having chest pains. Resting echocardiogram normal in April 11 therefore no need to repeat this. HEART score 5 - moderate; therefore recommend observation for further workup and will get stress echocardiogram tomorrow and if normal can be discharged. (2) Hypertension: Plan: Continue routine medications (3) Hyperthyroidism: Plan: Continue methimazole. TSH WNL in March - no need to repeat this. (4) Acid reflux: Plan: Switch omeprazole to pantoprazole per hospital formulary Plan VTE Prophylaxis - low risk Diet - heart healthy, NPO after midnight Disposition - observation to PCU Admission and Anticipated Discharge Date Admission Date: May 14, 2023 History of Present Illness Chief Complaint: Exertional chest pain Primary Care Provider: Wilfrid Miranda DO Jorge Luis Pierre is a 78-year-old male who presents to the ER with exertional chest pain. He was sent in by her PCP today due to concerns for crescendo angina. The patient notes previous exertional chest pains related to cold weather for multiple years although yesterday while walking up a steep hill he noted severity 8/10 chest pain relived after about 30 seconds of rest. This morning it happened again with associated shortness of breath with walking up a hill therefore went to see his PCP. However no chest pains with doing raking yard work yesterday. No nausea, palpitations, leg swelling, weight baylee. Pain is central chest pressure. In the office TWI in lateral leads were noted to be present which have not been present on recent EKGs. He has recently been dealing with high blood pressure with increasing valsartan dosing. No prior known coronary artery disease. No significant family history of OR < 60 year olds. Quit smoking 1999 - smoked pipe and cigarettes. No diabetes. No significant family history. He also notes taking omeprazole for heartburn - no problems since starting this. Allergies Allergy/AdvReac Type Severity Reaction Status Date / Time morphine Allergy Severe Anaphylaxis Verified 05/14/23 16:42 simvastatin AdvReac Intermediate MYALGIA Verified 05/14/23 16:42 Home Medications Medication Instructions Recorded Confirmed Type omega 3 350 mg-dha 235 mg-epa 90 1 tab PO BID 02/04/18 05/14/23 History mg-fish oil 597 mg capsule,delay rel ([place]-3) aspirin 81 mg tablet,delayed 81 mg PO QAM 01/11/20 05/14/23 History release ([place] Low Dose Aspirin) cholecalciferol (vitamin D3) 25 25 mcg PO DAILY 06/12/21 05/14/23 History mcg (1,000 unit) capsule B-complex with vitamin C 1 tab PO DAILY 02/28/23 05/14/23 History methimazole 5 mg tablet 5 mg PO Q OTHER DAY 02/28/23 05/14/23 History metoprolol succinate 25 mg 37.5 mg PO QPM 02/28/23 05/14/23 History tablet,extended release 24 hr omeprazole 40 mg capsule,delayed 40 mg PO QAM 02/28/23 05/14/23 History release valsartan 160 mg tablet 160 mg PO DAILY #90 tabs 04/18/23 05/14/23 Rx pravastatin 80 mg tablet 80 mg PO QPM #90 tabs 05/01/23 05/14/23 Rx Past Med/Surg History Medical History Lumbosacral facet joint syndrome Coccyx pain Lumbar compression fracture Lumbar spondylosis Claustrophobia Cancer Osteoarthritis BPH (benign prostatic hyperplasia) Hyperlipidemia Migraine Lumbar canal stenosis Hyperthyroidism Stage 3 chronic kidney disease Arthritis Mitral valve prolapse Acid reflux Surgical History S/P epidural steroid injection History of esophagogastroduodenoscopy (EGD) History of cholecystectomy History of colonoscopy with polypectomy History of wisdom tooth extraction Family History Mother Myocardial infarction Hypertension Father Kidney disease Brother Dyslipidemia Atrial fibrillation Other No family history of adverse response to anesthesia No pertinent family history Denies family history of Ovarian cancer Prostate cancer Diabetes Breast cancer Lung cancer Colorectal cancer Stroke Social History Smoking Status: Former smoker Tobacco Type: Pipe Second Hand Exposure: Yes (SPOUSE/ SON IN LAW SMOKED); Do You Dip or Chew Tobacco: No; Hx Alcohol Use: No Hx Substance Use: No Preferred Language: German Communication Ability: Effective Visual Impairment: No Limitations Hearing Ability: Normal Greenskeeper Supervisor Required: No Beliefs That Will Affect Care: None marital status: / Current Living Situation: Alone Current Living Situation Comment: SON IN LAW AND DAUGHTER current occupational status: retired How many Children do You have: 2 Other Information That Helps Us Care for You: No Feels Safe at Home: Yes Safety Concerns: Feels Safe At This Time Childhood Exposure to Second-Hand Smoke: Yes caffeine: Yes Dental Care, Regularly: Yes Physical Activity Frequency: 1-2 Times per Week Seatbelt Use: always Sunscreen Use: No Assistive Devices: None Review of Systems Review of Systems: All systems reviewed & are unremarkable except as noted in HPI & below Physical Exam Constitutional: WD/WN, vitals as above Eyes: + anicteric sclerae; normal pupil size ENMT: external ear and nose normal, oropharynx normal Respiratory: normal respiratory effort, lungs clear to auscultation Cardiovascular: RRR, no murmur, no edema Gastrointestinal (Abdomen): normal bowel sounds, soft, nontender, no hepatosplenomegaly Musculoskeletal: no cyanosis or clubbing, extremities motor strength 5/5 Skin: no rashes, warm and dry Neurologic: moves all extremities and awake; not confused Psychiatric: A+Ox3, euthymic affect Results & Data Results & Data Vital Signs (Past 12 Hours) Vital Signs Temp Pulse Resp BP Pulse Ox O2 Del Method 05/14/23 12:13 36.5 C 78 18 191/87 H 99 Room Air Laboratory Results Abnormal lab results 05/14/23 Range/Units 12:33 WBC 12.43 H (4.8-10.8) K/ul RBC 4.39 L (4.70-6.10) M/uL Hct 41.7 L (42.0-52.0) % Neut # (Auto) 9.38 H (1.40-6.50) K/uL [place] # (Auto) 1.28 H (0.11-0.59) K/uL BUN 29 H (6-23) mg/dl BUN/Creatinine Ratio 22.8 H (10-20) Glucose 102 H (70-99(Fasting)) mg/dl Diagnostic Findings XR chest 1V not portable HISTORY: 78 years-old Male Chest pain, nonspecific COMPARISON: 04/05/2023 TECHNIQUE: PA view of the chest FINDINGS: Cardiomediastinal and hilar silhouettes are within normal limits. No pneumothorax, pleural effusion or airspace consolidation. Spondylotic spurring of the spine. Bones appear grossly intact. Mild upper prosthetic levoscoliosis. IMPRESSION: No acute process. Medications Administered ER medications given: Aspirin 324 mg p.o. ECG Rate (beats per minute): 57 Rhythm: normal sinus Findings: + T-wave inversion (Lateral) and + ST elevation (Anterior consistent with repolarization variant and V1/V2 which is not new and no ST depression reciprocal changes) Comparison ECG Date: from (Apr 05, 2023) Change: no significant change Code Status & VTE Plan Code Status Full VTE Prophylaxis Plan VTE Prophylaxis will be ordered: Yes PG Care Time/CCT Total # of Minutes Spent Total Time Spent with Patient: Total time spent is greater than 50% in coordination of care (as documented) at patient's floor/unit and/or counseling patient: Coding Level of Care Code 29901 INT INP/OBS CARE 2/55MIN Diagnoses Exertional chest pain R07.9 Primary hypertension I10 Hypertension type: primary hypertension Hyperthyroidism E05.90 Acid reflux K21.9 (2) Hypertension Hypertension type: primary hypertension Qualified Code(s): I10 - Essential (primary) hypertension
[2023-05-14] MEDS: METOPROLOL SUCC 25MG EXT REL TAB PO SCH (21:21)
[2023-05-14] MEDS: PRAVASTATIN SOD 40 MG TAB PO SCH (22:27)
[2023-05-15 06:55] LABS: BUN Creatinine Ratio 23.8 (10-20); Calcium 9.7 mg/dl (8.6-10.3); Creatinine Clr Calc Pharmacy 44.4 ml/min; Est GFR (African American) 62.5 ml/min; Est GFR (Non-African American) 53.9 ml/min; Potassium 4.9 mmol/L (3.5-5.1)
[2023-05-15 06:59] LABS: Troponin I High Sensitivity 11.4 pg/ml (0-20)
[2023-05-15 07:02] LABS: Basophils # (auto) 0.03 K/uL (0.00-0.20); Basophils % (auto) 0.3 %; Eosinophils # (auto) 0.12 K/uL (0.00-0.50); Eosinophils % (auto) 1.3 %; Hematocrit (blood only) 39.8 % (42.0-52.0); Hemoglobin 13.5 g/dl (14.0-18.0); Immature Granulocytes # (auto) 0.05 K/uL (0.01-0.20); Immature Granulocytes % (auto) 0.5 %; Mean Corpuscular Hemoglobin 32.2 pg (25.0-34.0); Mean Corpuscular Hgb Conc 33.9 g/dL (32.0-36.0); Mean Platelet Volume 10.1 fL (9.4-12.4); Monocytes # (auto) 0.94 K/uL (0.11-0.59); Monocytes % (auto) 9.9 %; Neutrophils # (auto) 6.51 K/uL (1.40-6.50); Platelet Count 210 K/uL (130-400); RDW Coefficient of Variation 13.1 % (11.5-14.5); RDW Standard Deviation 45.9 fL (36.4-46.3); Red Blood Count 4.19 M/uL (4.70-6.10); White Blood Count 9.45 K/ul (4.8-10.8)
[2023-05-15] MEDS: ASPIRIN 81 MG ECTAB PO SCH (09:49)
[2023-05-15] MEDS: PANTOprazole 40 MG TAB PO SCH (09:50)
[2023-05-15] MEDS: VALSARTAN 80 MG TAB PO SCH (09:50)
--- NOTE | 2023-05-15 15:01 | XCELERA ---
[id number]
--- NOTE | 2023-05-15 16:14 | Discharge Summary ---
Date of Service May 15, 2023 Admission HPI Per Admitting Provider Jorge Luis Pierre is a 78-year-old male who presents to the ER with exertional chest pain. He was sent in by her PCP today due to concerns for crescendo angina. The patient notes previous exertional chest pains related to cold weather for multiple years although yesterday while walking up a steep hill he noted severity 8/10 chest pain relived after about 30 seconds of rest. This morning it happened again with associated shortness of breath with walking up a hill therefore went to see his PCP. However no chest pains with doing raking yard work yesterday. No nausea, palpitations, leg swelling, weight baylee. Pain is c entral chest pressure. In the office TWI in lateral leads were noted to be present which have not been present on recent EKGs. He has recently been dealing with high blood pressure with increasing valsartan dosing. No prior known coronary artery disease. No significant family history of CA < 60 year olds. Quit smoking 1999 - smoked pipe and cigarettes. No diabetes. No significant family history. He also notes taking omeprazole for heartburn - no problems since starting this. Principal Diagnosis exertional chest pain, possible angina / limited coronary artery disease Discharge Exam PHYSICAL EXAMINATION Last 24h vital signs reviewed, see documentation in flowsheet General: comfortable appearing, no distress, up walking around in room healthy appearing HEENT: Normocephalic, atraumatic, pupils round and equal, sclerae anicteric, no conjunctival injection, moist mucus membranes Lungs: Normal respiratory effort. Clear to auscultation Heart: Regular rate and rhythm, no murmurs. No JVD, no edema Neuro: Alert and oriented x 4, face symmetric, moves 4 extremities well, walks well Psych: Normal affect and behavior Discharge Data Allergies Allergy/AdvReac Type Severity Reaction Status Date / Time morphine Allergy Severe Anaphylaxis Verified 05/14/23 16:42 simvastatin AdvReac Intermediate MYALGIA Verified 05/14/23 16:42 Consultations 05/14/23 15:47 ED Decision to Admit Stat Procedures Performed Treadmill stress echo Hospital Course (1) Exertional chest pain: Some concern for EKG changes however these TWI were also present on prior EKGs in February 2018 and Apr 2013 and appear to be lead placement related given similarities in QRS complexes with these EKGs compared to EKGs in interim. Reassuringly he has also had exertion not related to cold air when he is not having chest pains. Resting echocardiogram normal in April 11 therefore no need to repeat this. HEART score 5 - moderate; therefore recommend observation for further workup and will get stress echocardiogram tomorrow and if normal can be discharged. Serial troponins were negative. No recurrence of chest pain. Had treadmill stress echo. Exercised to 7.7 METS with minimal transient chest discomfort at peak exercise, negative by echocardiographic criteria at 96% max heart rate, markedly abnormal EKG response -per online advertising analyst could be false positive EKG versus limited coronary artery disease, recommended continued medical management and PRN nitroglycerin vs invasive evaluation. Low risk for discharge with outpatient follow up. I discussed with Mr. Pierre and offered cardiology referral / follow up with Dr. Johnson or one of his partners. He prefers strategy of continuing his usual meds (which is a good CAD regimen of ASA/B-tk/ARB/statin) with addition of PRN nitro SL and follow up to discuss with his primary care doctor. If worsening symptoms, would recommend pursuing cardiology evaluation to consider invasive testing. Reviewed outpatient labs - last LDL 120, HDL 50, TG 142 last year. Were not drawn this AM after admission. Recommend recheck lipids soon in outpatient setting and consider changing to high intensity statin. (2) Hypertension: Continue routine medications (3) Hyperthyroidism: Continue methimazole. TSH WNL in March - no need to repeat this. (4) Acid reflux: Plan CKD stage 3 - on ARB and follows with Dr. Butt, jeff Total Time Total Time Spent Total Time Spent (In Minutes): 25 minutes Discharge Plan Discharge Items Patient Disposition: Home - Self-Care Reason For Visit: CHEST PAIN RULE OUT CA Discharge Diagnosis: chest pain Activity: Resume your previous activity Non-emergency contact: Primary Care Provider Call non-emergency contact if: you have any medication questions and your symptoms worsen Follow-up/Referrals: Wilfrid Miranda DO [Primary Care Provider] - Diet: Heart Healthy Addtl Attending Provider Instructions: You were evaluated for chest pain -heart attack was ruled out -you had a stress echo test. you tolerated a strong amount of exercise, which is a good prognosis. your images were normal during maximal exercise. you did have EKG changes - the online advertising analyst said this could be a false-positive or could represent limited coronary disease -the medications you are already on are very good for treating and preventing coronary artery disease -talk to your primary care doctor about rechecking your cholesterol and potentially changing to a stronger "statin" medication -if symptoms change/worsen or if you would consider further testing (heart cath procedure, for example) follow up with Dr. Johnson or one of his partners in cardiology clinic I gave you a prescription for nitroglycerin to use as needed for chest pain -take 1 tablet under the tongue every 5 minutes as needed for chest pain to maximum of three doses -if chest pain is not resolving promptly with nitroglycerin and rest, seek immediate medical attention Candelaria Lopez MD Pending Studies at Discharge: No Stand-Alone Forms: My [facility] Smart Checkout, Smoking Cessation Medications and DC Order Prescriptions: New nitroglycerin 0.4 mg tablet, sublingual 0.4 mg sublingual Q5M PRN (Reason: chest pain) Qty: 25 1RF Rx Instructions: max 3 doses Continued valsartan 160 mg tablet 160 mg PO DAILY Qty: 90 3RF pravastatin 80 mg tablet 80 mg PO QPM Qty: 90 3RF cholecalciferol (vitamin D3) 25 mcg (1,000 unit) capsule 25 mcg PO DAILY [place]-3 350 mg-235 mg- 90 mg-597 mg Capsule,Delayed Release(Dr/Ec) 1 tab PO BID aspirin [Mando Low Dose Aspirin] 81 mg Tablet,Delayed Release (Dr/Ec) 81 mg PO QAM B-complex with vitamin C Tablet 1 tab PO DAILY omeprazole 40 mg capsule,delayed release(DR/EC) 40 mg PO QAM Rx Instructions: TAKE 1 CAPSULE EVERY MORNING methimazole 5 mg tablet 5 mg PO Q OTHER DAY Rx Instructions: TAKE 1 TABLET EVERY OTHER DAY metoprolol succinate 25 mg tablet extended release 24 hr 37.5 mg PO QPM Discharge Orders: Discharge Order (Routine); Ordered 05/15/23 Ordered By: Candelaria Lopez Admission Data Admit Date/Time: 05/14/23 16:08 Attending Provider: Candelaria Lopez Admit Provider: Brad Grace Primary Care Provider: Wilfrid Miranda Other Providers: Brad Grace Coding Level of Care Code 04116 IN/OBS DISCH 30 MIN/LESS Diagnoses Exertional chest pain R07.9 Primary hypertension I10 Hypertension type: primary hypertension Hyperthyroidism E05.90 Acid reflux K21.9
[2023-05-16] MEDS ORDERED: methIMAzole 5 MG TABLET PO SCH (09:00)
== END 2023-05-15 16:29 | disposition home or self-care (01) ==
LOC: ED 11:55 → EDINP 11:55 → SUATTDRO 16:08 → EDINP 18:38 → 2S 20:35

== ENCOUNTER 2024-09-26 10:48 | Inpatient (IN) ==
--- NOTE | 2024-09-26 11:07 | Emergency Department Note ---
Impression & Plan Paresthesias, Lightheadedness ED Provider Note HISTORY OF PRESENT ILLNESS: Patient is an 79-year-old male presenting with numbness and tingling. Patient reports that at 10 AM he was at latter day when he suddenly developed "numbness in my head and nose." He states that symptoms lasted for about 20 to 25 minutes and developed to include numbness in his bilateral upper extremities. He states that symptoms resolved after about [address] minutes and [address] his way here. He states that this is similar to the last 2 times he presented. He denies any chest pain or shortness of breath. He denies any recent falls or head injury. Denies any chiropractic manipulation of his neck. Denies any changes in vision. Denies any headache. Denies any abdominal pain, nausea or vomiting. Patient is on aspirin and Plavix. ROS: as above PHYSICAL EXAM: Constitutional: Patient appears in no acute distress. HENT: Head: Normocephalic and atraumatic. Eyes: EOMI, PERRL Mouth/Throat: Mucous membranes moist. Neck: Trachea midline. Neck supple. Cardiovascular: RRR, No murmurs, rubs or gallops. Intact distal pulses. Pulmonary/Chest: No respiratory distress. Breath sounds clear and equal bilaterally. No wheezes or rales. Abdominal: Abdomen soft, no tenderness, rebound or guarding. Musculoskeletal: No edema, tenderness or deformity noted. Skin: Warm and dry. No rash, erythema, pallor or cyanosis Psychiatric: Appropriate mood and affect for situation. Neurological: Alert and keenly responsive. CN II-XII grossly intact, moving all extremities equally and fully. MDM: - Vitals signs showed hypertension - History obtained via patient. History as above. - Chronic conditions affecting care: CKD stage 3; HTN; hyperthyroidism; HLD; CAD (S/p PCI) - Differential diagnoses include, but are not limited to: CVA; intracranial hemorrhage; ACS; electrolyte abnormality; pneumonia; dehydration - Order placed for continuous cardiac monitoring. At this time, monitor showed rate of 55 bpm with normal sinus rhythm, per my interpretation. - External medical records reviewed. - EKG image interpreted by myself showed normal sinus rhythm. Rate bradycardic at 59 bpm. QT 402. No acute ischemic changes. - Laboratory workup interpreted by myself showed normal WBC; chronic anemia (Hgb 12.5); normal PT/INR; slight hyponatremia (Na 131); CKD (Cr 1.54); normal troponin - CXR image reviewed myself negative for pneumonia, per my interpretation. - CT head wo contrast negative for acute intracranial pathology - CTA head/neck negative for acute pathology - Patient has been seen 3 times in the last 5 days for similar symptoms. Unclear if he is having TIAs at this point, but he has not had aspirin and Plavix already. Will admit for further strokelike symptoms workup. - Discussion was had with casework supervisor about patient's case and need for admission - Hospitalist consulted for admission - Patient admitted to [facility] for further evaluation and management. ASSESSMENT AND PLAN: Diagnosis: Paresthesias; lightheadedness Plan: Admit Past Med/Surg History Problem List (Updated 09/26/24 @ 12:36 by Lissette Paulino MD) Lightheadedness (Acute) Paresthesias (Acute) Lightheadedness (Acute) Generalized weakness (Acute) Hypertension (Acute) Strain of abdominal muscle Presence of stent in coronary artery in patient with coronary artery disease S/P PCI of the ostial to distal L main with 4.0X8mm Xience zuleyma point LEE ANN on 12/16/23 Chest pain Stented coronary artery CAD, multiple vessel Hypertension Hyperthyroidism on Methimazole Mitral valve disease Acid reflux Lumbosacral facet joint syndrome Impaired glucose metabolism Coccyx pain CMC arthritis Thumb pain Degenerative arthritis of thumb Pain of left thumb Lumbar compression fracture Lumbar spondylosis Dyspnea (Chronic) Hyperthyroidism (Chronic) Gallbladder sludge (Chronic) Aortic calcification (Chronic) Hyperlipidemia (Chronic) Lower urinary tract symptoms (LUTS) Vitamin D deficiency Colon cancer screening 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 Stage 3 chronic kidney disease (Chronic) Lumbar canal stenosis (Chronic) Medical History Exertional chest pain Claustrophobia Cancer Melanoma s/p excision (back) Osteoarthritis BPH (benign prostatic hyperplasia) Hyperlipidemia Migraine Hx Arthritis Mitral valve prolapse Per patient, no recent echo, no murmur noted per multiple [facility] anesthesia evaluations (most recently 01/18/20) Surgical History History of surgery cardiac stent 12/2023 S/P epidural steroid injection History of esophagogastroduodenoscopy (EGD) History of cholecystectomy History of colonoscopy with polypectomy 2020 History of wisdom tooth extraction Family History Mother Myocardial infarction Hypertension Father Kidney disease Brother Dyslipidemia Atrial fibrillation Other No family history of adverse response to anesthesia No pertinent family history Denies family history of Ovarian cancer Prostate cancer Diabetes Breast cancer Lung cancer Colorectal cancer Stroke Social History Smoking Status: Former smoker Tobacco Type: Cigarettes and Pipe Age Started Using Tobacco: 13; Age Quit Using Tobacco: 54; packs per day: 0.5; Second Hand Exposure: No; Do You Dip or Chew Tobacco: No; Hx Alcohol Use: No Hx Substance Use: No Preferred Language: Belarusian Communication Ability: Effective Visual Impairment: Limited Hearing Ability: Normal City Designer Required: No marital status: / Current Living Situation: Alone Current Living Situation Comment: SON IN LAW AND DAUGHTER current occupational status: retired How many Children do You have: 2 Feels Safe at Home: Yes Childhood Exposure to Second-Hand Smoke: Yes Diet: regular caffeine: Yes during the past year weight has: increased > 10 lbs Dental Care, Regularly: Yes Physical Activity Frequency: Daily Physical Activity Frequency Comment: walk dogs Seatbelt Use: always Sunscreen Use: No Assistive Devices: None Allergies Allergies Allergy/AdvReac Type Severity Reaction Status Date / Time morphine Allergy Severe Anaphylaxis Verified 08/17/24 09:10 simvastatin AdvReac Intermediate MYALGIA Verified 08/17/24 09:10 Home Meds Home Medications Medication Instructions Recorded Confirmed omega 3 350 mg-dha 235 mg-epa 90 1 tab PO BID 02/04/18 09/26/24 mg-fish oil 597 mg capsule,delay rel ([place]-3) B-complex with vitamin C 1 tab PO DAILY 02/28/23 09/26/24 aspirin 81 mg chewable tablet 81 mg PO DAILY 12/19/23 09/26/24 [id number]-[id number]-vxtrysul 1 tab PO Q6H PRN Headache 05/21/24 09/26/24 50 mg-325 mg-40 mg tablet cholecalciferol (vitamin D3) 25 25 mcg PO DAILY 05/21/24 09/26/24 mcg (1,000 unit) capsule nitroglycerin 0.4 mg sublingual 0.4 mg sublingual Q5M PRN Chest 05/21/24 09/26/24 tablet Pain psyllium husk 0.4 gram capsule 0.4 g PO DAILY 05/21/24 09/26/24 (Metamucil) amlodipine 5 mg tablet 5 mg PO DAILY 09/24/24 09/26/24 metoprolol succinate 25 mg 37.5 mg PO DAILY 09/26/24 09/26/24 tablet,extended release 24 hr Previous Rx's Medication Instructions Recorded methimazole 5 mg tablet 5 mg PO Q OTHER DAY 90 days #45 10/31/23 tabs clopidogrel 75 mg tablet 75 mg PO DAILY #90 tabs 12/23/23 pantoprazole 40 mg tablet,delayed 40 mg PO DAILY #90 tabs 12/23/23 release valsartan 160 mg tablet 160 mg PO DAILY #90 tabs 01/28/24 pravastatin 80 mg tablet 80 mg PO QPM #90 tabs 07/28/24 Results & Data (ED) Vital Signs Vital Signs - 24 hr 09/26/24 10:52 09/26/24 11:18 09/26/24 12:23 Temperature 36.7 C Temperature Source Temporal Artery Scan Pulse Rate 60 54 L Respiratory Rate 18 Respiratory Effort / Characteristics Non-Labored Spontaneous Respiratory Depth Normal Respiratory Pattern Regular Blood Pressure 178/65 H Blood Pressure Mean 102 Pulse Oximetry 99 99 Oxygen Delivery Method Room Air Room Air Sepsis Recent Fever Within 48 Hours No Sepsis New/Unexplained Change in Mental Status N/A Sepsis Action Taken by Nursing No Action Required Laboratory Data 09/26/24 11:10 09/26/24 11:10 Lab Results 09/26/24 09/26/24 Range/Units 11:10 11:15 WBC 6.12 (4.8-10.8) K/ul RBC 3.83 L (4.70-6.10) M/uL Hgb 12.5 L (14.0-18.0) g/dl POC Hgb 12.9 L (14.0-18.0) g/dl Hct 35.2 L (42.0-52.0) % POC Hct 38 L (42-52) % MCV 91.9 (80.0-100.0) fL MCH 32.6 (25.0-34.0) pg MCHC 35.5 (32.0-36.0) g/dL RDW Std Deviation 41.7 (36.4-46.3) fL RDW Coeff of Mei 12.5 (11.5-14.5) % Plt Count 184 (130-400) K/uL MPV 9.1 L (9.4-12.4) fL PT 10.4 (9.0-12.0) Seconds INR 1.0 (0.9-1.1) APTT 27 (21-31) Seconds PTT Ratio 1.0 POC Sodium 133 L (135-144) mmol/L Sodium 131 L (136-145) mmol/L POC Potassium 5.0 (3.3-5.0) mmol/L Potassium 5.0 (3.5-5.1) mmol/L POC Chloride 98 L (101-112) mmol/L Chloride 99 (98-107) mmol/L Carbon Dioxide 26 (21-32) mmol/L POC Total CO2 24 (24-31) mmol/L Anion Gap 6 (3-11) POC Anion Gap 16.0 (16-25) mmol/L POC BUN 29 H (7-18) mg/dl BUN 30 H (6-23) mg/dl Creatinine 1.54 H (0.6-1.4) mg/dl POC Creatinine 1.6 H (0.6-1.3) mg/dl Est Cr Clr Drug Dosing 35.8 ml/min eGFR 45.32 BUN/Creatinine Ratio 19.5 (10-20) Glucose 105 H (70-99(Fasting)) mg/dl POC Glucose (other) 106 H (70-99) mg/dl Calcium 9.6 (8.6-10.3) mg/dl POC Ioniz Calcium Arpit 1.23 (1.12-1.32) mmol/l Magnesium 1.8 (1.7-2.4) mg/dl Total Bilirubin 0.5 (0.2-1.0) mg/dl AST 17 (13-39) U/L ALT 16 (7-52) U/L Alkaline Phosphatase 37 (34-104) U/L Total Protein 7.3 (6.0-8.3) gm/dl Albumin 4.6 (3.4-5.0) gm/dl Globulin 2.7 (2.5-4.0) gm/dl Albumin/Globulin Ratio 1.7 (0.9-2) Administered Medications Discontinued Medications Sodium Chloride (Nss) 500 mls @ 999 mls/hr IV .Q31M ONE Stop: 09/26/24 11:50 Last Infusion: 09/26/24 12:37 Dose: Infused Documented By: Admin: 09/26/24 11:25 Dose: 999 mls/hr Documented By: DEBO Ioversol (Optiray 320 125ml) 120 ml IV ONCE ONE Stop: 09/26/24 11:32 Last Admin: 09/26/24 11:31 Dose: 120 ml Documented By: DEMAR Imaging Data Radiologist's Impression: Chest X-Ray 09/26/24 10:56 XR chest 1V portable CLINICAL HISTORY: stroke like symptoms COMPARISON STUDY: 09/24/2024 FINDINGS: Heart size and pulmonary vasculature are normal. No effusion, consolidation, or pneumothorax. IMPRESSION: No acute findings. ACT 112: Negative or not required by law. Electronically signed by: Robson Butcher M.D. 09/26/2024 11:[address] 09/26/24 10:56 CT head/brain wo con CLINICAL HISTORY: Neuro deficit, acute, stroke suspected. TECHNIQUE: Multiple axial CT images of the head were obtained without contrast. A dose lowering technique was utilized adhering to the principles of ALARA. CT DOSE: 1102.52 mGy.cm COMPARISON: 09/24/2024 FINDINGS: No intracranial hemorrhage seen. No mass effect, midline shift, or hydrocephalus. No skull fracture seen. Visualized paranasal sinuses and mastoid air cells are clear. IMPRESSION: No acute findings. ACT 112: Negative or not required by law. The above report was generated using voice recognition software. It may contain grammatical, syntax or spelling errors. Electronically signed by: Robson Butcher M.D. 09/26/2024 11:43 AM Head CTA 09/26/24 10:56 CT angio neck with con, CT angio head w con CLINICAL HISTORY: numbness; stroke like symptoms. TECHNIQUE: Following the IV administration of 120 of Optiray, CT angiogram of the neck and brain was performed from the aortic arch to the skull base. Images are reviewed in the axial, sagittal, and coronal planes. 3-D MIPS images are created and assessed. IV contrast was administered without complication. All measurements were calculated based on NASCET criteria. A dose lowering technique was utilized adhering to the principles of ALARA. CT DOSE: 1103 COMPARISON STUDY: 12/18/2023 FINDINGS: There are calcifications at the carotid bulbs and distal internal carotid arteries. Left vertebral artery is dominant and the right vertebral artery is diminutive beyond PICA, anatomic variant. No significant narrowing or occlusion seen of the common or internal carotid or vertebral arteries bilaterally. Basilar artery is patent. The anterior, middle, and posterior cerebral arteries are patent bilaterally. Cerebral venous sinuses opacify normally. IMPRESSION: No significant arterial narrowing or occlusion seen at the neck or brain. ACT 112: Negative or not required by law. The above report was generated using voice recognition software. It may contain grammatical, syntax or spelling errors. Electronically signed by: Robson Butcher M.D. 09/26/2024 11:54 AM Neck CTA 09/26/24 10:56 CT angio neck with con, CT angio head w con CLINICAL HISTORY: numbness; stroke like symptoms. TECHNIQUE: Following the IV administration of 120 of Optiray, CT angiogram of the neck and brain was performed from the aortic arch to the skull base. Images are reviewed in the axial, sagittal, and coronal planes. 3-D MIPS images are created and assessed. IV contrast was administered without complication. All measurements were calculated based on NASCET criteria. A dose lowering technique was utilized adhering to the principles of ALARA. CT DOSE: 1103 COMPARISON STUDY: 12/18/2023 FINDINGS: There are calcifications at the carotid bulbs and distal internal carotid arteries. Left vertebral artery is dominant and the right vertebral artery is diminutive beyond PICA, anatomic variant. No significant narrowing or occlusion seen of the common or internal carotid or vertebral arteries bilaterally. Basilar artery is patent. The anterior, middle, and posterior cerebral arteries are patent bilaterally. Cerebral venous sinuses opacify normally. IMPRESSION: No significant arterial narrowing or occlusion seen at the neck or brain. ACT 112: Negative or not required by law. The above report was generated using voice recognition software. It may contain grammatical, syntax or spelling errors. Electronically signed by: Robson Butcher M.D. 09/26/2024 11:54 AM Discharge Plan Visit Data Chief Complaint: Neuro Symptoms/Deficit Stated Complaint: DIZZINESS,NUMBNESS IN FACE AND BOTH ARMS ED Provider: Lissette Paulino Discharge Problem: Paresthesias, Lightheadedness Condition: Fair Forms Stand Alone Forms: My [facility] Prescriptions Prescriptions: No Action methimazole 5 mg tablet 5 mg PO Q OTHER DAY 90 Days Qty: 45 3RF Rx Instructions: TAKE 1 TABLET EVERY OTHER DAY valsartan 160 mg tablet 160 mg PO DAILY Qty: 90 3RF clopidogrel 75 mg tablet 75 mg PO DAILY Qty: 90 3RF pantoprazole 40 mg tablet,delayed release (DR/EC) 40 mg PO DAILY Qty: 90 3RF cholecalciferol (vitamin D3) 25 mcg (1,000 unit) capsule 25 mcg PO DAILY Rx Instructions: 09/26-otc unable to verify yzttqqtnqw-lhgzwzmbkrvwj-korq 50-325-40 mg tablet 1 tab PO Q6H PRN (Reason: Headache) Rx Instructions: 09/26-otc unable to verify psyllium husk [Metamucil] 0.4 gram capsule 0.4 g PO DAILY Rx Instructions: 09/26-otc unable to verify nitroglycerin 0.4 mg tablet, sublingual 0.4 mg sublingual Q5M PRN (Reason: Chest Pain) Rx Instructions: do not exceed 3 doses per episode pravastatin 80 mg tablet 80 mg PO QPM Qty: 90 3RF aspirin 81 mg tablet,chewable 81 mg PO DAILY Patient Comments: CONFIRMED W/ PT AND [facility]-12/19/23 Rx Instructions: 09/26-otc unable to verify [place]-3 350 mg-235 mg- 90 mg-597 mg Capsule,Delayed Release(Dr/Ec) 1 tab PO BID Rx Instructions: 09/26-otc unable to verify B-complex with vitamin C Tablet 1 tab PO DAILY Rx Instructions: 09/26-otc unable to verify amlodipine 5 mg tablet 5 mg PO DAILY Rx Instructions: TAKE 1 TABLET DAILY metoprolol succinate 25 mg tablet extended release 24 hr 37.5 mg PO DAILY Rx Instructions: TAKE 1 AND 1/2 TABLETS DAILY IN THE EVENING Referrals Referrals: Wilfrid Miranda, [Primary Care Provider] -
--- NOTE | 2024-09-26 11:12 | XRay Report ---
XR chest 1V portable CLINICAL HISTORY: stroke like symptoms COMPARISON STUDY: 09/24/2024 FINDINGS: Heart size and pulmonary vasculature are normal. No effusion, consolidation, or pneumothora x. IMPRESSION: No acute findings. ACT 112: Negative or not required by law. Electronically signed by: Robson Butcher M.D. 09/26/2024 11:10 AM
[2024-09-26 11:24] LABS: Hematocrit (blood only) 35.2 % (42.0-52.0); Hemoglobin 12.5 g/dl (14.0-18.0); Mean Corpuscular Hemoglobin 32.6 pg (25.0-34.0); Mean Corpuscular Hgb Conc 35.5 g/dL (32.0-36.0); Mean Corpuscular Volume 91.9 fL (80.0-100.0); Mean Platelet Volume 9.1 fL (9.4-12.4); Platelet Count 184 K/uL (130-400); RDW Coefficient of Variation 12.5 % (11.5-14.5); RDW Standard Deviation 41.7 fL (36.4-46.3); Red Blood Count 3.83 M/uL (4.70-6.10); White Blood Count 6.12 K/ul (4.8-10.8)
[2024-09-26] MEDS: SODIUM CHLORIDE 0.9% 500 ML IV ONE (11:25)
[2024-09-26 11:28] LABS: iSTAT Creatinine 1.6 mg/dl (0.6-1.3); iSTAT Hemoglobin 12.9 g/dl (14.0-18.0); iSTAT Ionized Calcium 1.23 mmol/l (1.12-1.32)
[2024-09-26] MEDS: OPTIRAY 320 125ml IV ONE (11:31)
--- NOTE | 2024-09-26 11:46 | CT Scan Report ---
CT head/brain wo con CLINICAL HISTORY: Neuro deficit, acute, stroke suspected. TECHNIQUE: Multiple axial CT images of the head were obtained without contrast. A dose lowering tech nique was utilized adhering to the principles of ALARA. CT DOSE: 1102.52 mGy.cm COMPARISON: 09/24/2024 FINDINGS: No intracranial hemorrhage seen. No mass effect, midline shift, or hydrocephalus. No skull fracture seen. Visualized paranasal sinuses and mastoid air cells are clear. IMPRESSION: No acute findings. ACT 112: Negative or not required by law. The above report was generated using voice recognition software. It may contain grammatical, syntax o r spelling errors. Electronically signed by: Robson Butcher M.D. 09/26/2024 11:43 AM
[2024-09-26 11:56] LABS: Albumin Globulin Ratio 1.7 (0.9-2); Albumin Level 4.6 gm/dl (3.4-5.0); BUN Creatinine Ratio 19.5 (10-20); Bilirubin,Total 0.5 mg/dl (0.2-1.0); Calcium 9.6 mg/dl (8.6-10.3); Creatinine Clr Calc Pharmacy 35.8 ml/min; Globulin 2.7 gm/dl (2.5-4.0); Magnesium 1.8 mg/dl (1.7-2.4); Total Protein 7.3 gm/dl (6.0-8.3)
--- NOTE | 2024-09-26 11:56 | CT Scan Report ---
CT angio neck with con, CT angio head w con CLINICAL HISTORY: numbness; stroke like symptoms. TECHNIQUE: Following the IV administration of 120 of Optiray, CT angiogram of the neck and brain was performed from the aortic arch to the skull base. Images are reviewed in the axial, sagittal, and cor onal planes. 3-D MIPS images are created and assessed. IV contrast was administered without complicat ion. All measurements were calculated based on NASCET criteria. A dose lowering technique was utiliz ed adhering to the principles of ALARA. CT DOSE: 1103 COMPARISON STUDY: 12/18/2023 FINDINGS: There are calcifications at the carotid bulbs and distal internal carotid arteries. Left ve rtebral artery is dominant and the right vertebral artery is diminutive beyond PICA, anatomic variant . No significant narrowing or occlusion seen of the common or internal carotid or vertebral arteries bilaterally. Basilar artery is patent. The anterior, middle, and posterior cerebral arteries are carpio nt bilaterally. Cerebral venous sinuses opacify normally. IMPRESSION: No significant arterial narrowing or occlusion seen at the neck or brain. ACT 112: Negative or not required by law. The above report was generated using voice recognition software. It may contain grammatical, syntax o r spelling errors. Electronically signed by: Robson Butcher M.D. 09/26/2024 11:54 AM
[2024-09-26 12:06] LABS: Partial Thromboplastin Time 27 Seconds (21-31); Prothrombin Time 10.4 Seconds (9.0-12.0)
--- NOTE | 2024-09-26 12:46 | History & Physical Report ---
Date of Service September 26, 2024 Assessment & Plan (1) Lightheadedness: (2) Paresthesias: (3) Generalized weakness: (4) CAD, multiple vessel: (5) Hypertension: (6) Hyperthyroidism: (7) Hyperlipidemia: (8) BPH with obstruction/lower urinary tract symptoms: (9) Stage 3 chronic kidney disease: Plan Roberto is an 79yo M with h/o HTN, HLD, GERD, CAD s/p LEE ANN, CKD3, lumbar stenosis, OA, and BPH who presented with lightheadedness and numbness of face and arms. He has 2 other ED visits in the past week for the same issue. He also complains of dyspnea on exertion and weakness/fatigue during the same period. He is being admitted for thorough workup of the etiology of these symptoms. Dyspnea on exertion / CAD - Pt w/ 3-vessel CAD; Dec 2023 had LEE ANN placed from the Ostial to Distal LMCA. [facility]; next appt in November. - CBC w/ mild normocytic anemia; CMP w/ mild hyponatremia; TSH on 09/24 was 2.135 - Will also check trop - 2x normal or trend until peak - EKG done 09/26 notable for bradycardia. Plan for stress echo as soon as av ailable - PRN nitrostat 0.4mg, supplemental O2 as needed - Continue DAPT with asa + plavix Generalized weakness / poor PO / mild hyponatremia - Pt with poor oral intake despite moderate activity level. No abnormal weight loss, n/v, imbalance, or fall - Encourage oral intake; HH diet, supplement as needed - Na initially 133, likely 2/2 decreased po intake. 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 Paresthesias + lightheadedness - Broad ddx: most likely CAD +/- deconditioning; less likely, electrolyte abnormality, vitamin deficiency, TIA/CVA, radiculopathy - CT head with no acute abnormality; CTA head/neck showed no stenosis or occlusion - If this is an anginal equivalent, hopeful resolution with appropriate management of CAD - If no acute cardiac concern, focus on pt's strength and nutrition as above HTN - continue amlodipine, valsartan HLD - continue statin Hyperthyroidism - continue metoprolol, methemizole GERD - continue protonix CKD3 - Cr at baseline ~1.5 Diet: HH Dispo: admit to med-tele; likely d/c home but may need brief rehab Code: Full History of Present Illness Primary Care Provider: DO Roberto Rosales is an 79yo man with significant PMH, notable for 3-vessel CAD s/p LEE ANN from the Ostial to Distal LMCA. Since the cardiac cath in Dec 2023, he initially felt well, until sometime this spring. He reports the sx began relatively recently, most notably with generalized weakness and fatigue. He mentions not being very active over winter, and now having 2 acres and several pets to care for. He also admits to consuming very little food or water, and will sometimes go about his usual activities with just his morning coffee. He has been having shortness of breath with exertion, but denies chest pain or pressure, palpitations, or dyspnea at rest. He has also intermittently had episodes consisting of lightheadedness along with numbness on arms and face (spreading outward from nose). He cannot think of particular trigger or any alleviat ing/aggravating factors. He does not experience similar sx in any other part of body. He says the lightheadedness not positional, and is not associated with dizziness, imbalance or abnormal gait. He has had no falls. No MEADOWS, visual disturbances, blurriness, changes in hearing, tinnitus, neck pain, heat/cold intolerance, abnormal weight change, sick sx. He has been seen in the ED last week for similar sx (on 09/22 and 09/24) but not admitted as sx resolved during visit and he felt comfortable being discharged. This time he says was his worst episode; son-in-law had to drive him here, and he does not feel stable to go home. He lives alone but says his daughter & son-in-law are currently staying with him. Reports he takes his meds as prescribed and there have been no recent changes. In the ED today, he was given 1L nss and found to have negative orthostatics, normal CTA head/neck and CT head, labs notable for low Na of 133 and mild normocytic anemia. Allergies Allergy/AdvReac Type Severity Reaction Status Date / Time morphine Allergy Severe Anaphylaxis Verified 08/17/24 09:10 simvastatin AdvReac Intermediate MYALGIA Verified 08/17/24 09:10 Home Medications Medication Instructions Recorded Confirmed Type omega 3 350 mg-dha 235 mg-epa 90 1 tab PO BID 02/04/18 09/26/24 History mg-fish oil 597 mg capsule,delay rel ([place]-3) B-complex with vitamin C 1 tab PO DAILY 02/28/23 09/26/24 History methimazole 5 mg tablet 5 mg PO Q OTHER DAY 90 days #45 10/31/23 09/26/24 Rx tabs aspirin 81 mg chewable tablet 81 mg PO DAILY 12/19/23 09/26/24 History clopidogrel 75 mg tablet 75 mg PO DAILY #90 tabs 12/23/23 09/26/24 Rx pantoprazole 40 mg tablet,delayed 40 mg PO DAILY #90 tabs 12/23/23 09/26/24 Rx release valsartan 160 mg tablet 160 mg PO DAILY #90 tabs 01/28/24 09/26/24 Rx odmzgabglm-ynfwkbakwzsab-ujpjwxum 1 tab PO Q6H PRN Headache 05/21/24 09/26/24 History 50 mg-325 mg-40 mg tablet cholecalciferol (vitamin D3) 25 25 mcg PO DAILY 05/21/24 09/26/24 History mcg (1,000 unit) capsule nitroglycerin 0.4 mg sublingual 0.4 mg sublingual Q5M PRN Chest 05/21/24 09/26/24 History tablet Pain psyllium husk 0.4 gram capsule 0.4 g PO DAILY 05/21/24 09/26/24 History (Metamucil) pravastatin 80 mg tablet 80 mg PO QPM #90 tabs 07/28/24 09/26/24 Rx amlodipine 5 mg tablet 5 mg PO DAILY 09/24/24 09/26/24 History metoprolol succinate 25 mg 37.5 mg PO DAILY 09/26/24 09/26/24 History tablet,extended release 24 hr Past Med/Surg History Problem List (Updated 09/26/24 @ 12:36 by Lissette Paulino MD) Lightheadedness (Acute) Paresthesias (Acute) Lightheadedness (Acute) Generalized weakness (Acute) Hypertension (Acute) Strain of abdominal muscle Presence of stent in coronary artery in patient with coronary artery disease S/P PCI of the ostial to distal L main with 4.0X8mm Xience zuleyma point LEE ANN on 12/16/23 Chest pain Stented coronary artery CAD, multiple vessel Hypertension Hyperthyroidism on Methimazole Mitral valve disease Acid reflux Lumbosacral facet joint syndrome Impaired glucose metabolism Coccyx pain CMC arthritis Thumb pain Degenerative arthritis of thumb Pain of left thumb Lumbar compression fracture Lumbar spondylosis Dyspnea (Chronic) Hyperthyroidism (Chronic) Gallbladder sludge (Chronic) Aortic calcification (Chronic) Hyperlipidemia (Chronic) Lower urinary tract symptoms (LUTS) Vitamin D deficiency Colon cancer screening 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 Stage 3 chronic kidney disease (Chronic) Lumbar canal stenosis (Chronic) Medical History Exertional chest pain Claustrophobia Cancer Melanoma s/p excision (back) Osteoarthritis BPH (benign prostatic hyperplasia) Hyperlipidemia Migraine Hx Arthritis Mitral valve prolapse Per patient, no recent echo, no murmur noted per multiple [facility] anesthesia evaluations (most recently 01/18/20) Surgical History History of surgery cardiac stent 12/2023 S/P epidural steroid injection History of esophagogastroduodenoscopy (EGD) History of cholecystectomy History of colonoscopy with polypectomy 2020 History of wisdom tooth extraction Family History Mother Myocardial infarction Hypertension Father Kidney disease Brother Dyslipidemia Atrial fibrillation Other No family history of adverse response to anesthesia No pertinent family history Denies family history of Ovarian cancer Prostate cancer Diabetes Breast cancer Lung cancer Colorectal cancer Stroke Social History Smoking Status: Former smoker Tobacco Type: Cigarettes and Pipe Age Started Using Tobacco: 13; Age Quit Using Tobacco: 54; packs per day: 0.5; Second Hand Exposure: No; Do You Dip or Chew Tobacco: No; Hx Alcohol Use: No Hx Substance Use: No Preferred Language: Thai Communication Ability: Effective Visual Impairment: Limited Hearing Ability: Normal Hog Grader Required: No marital status: / Current Living Situation: Alone Current Living Situation Comment: SON IN LAW AND DAUGHTER current occupational status: retired How many Children do You have: 2 Feels Safe at Home: Yes Childhood Exposure to Second-Hand Smoke: Yes Diet: regular caffeine: Yes during the past year weight has: increased > 10 lbs Dental Care, Regularly: Yes Physical Activity Frequency: Daily Physical Activity Frequency Comment: walk dogs Seatbelt Use: always Sunscreen Use: No Assistive Devices: None Review of Systems Review of Systems: Full ROS conducted and negative except as noted in HPI. Physical Exam Physical Exam: Gen: Thin, well-appearing, NAD HEENT: NCAT, normal conjunctiva, MMM, no perioral cyanosis CV: RRR, no m/r/g, S1/S2 normal, cap refill < 3s, no LE edema Resp: CTAB, symmetrical chest rise, no increased work of breathing Abd: Soft, NT/ND, +BS MSK: Full ROM, no gross deformities on inspection Skin: Warm, dry, well-perfused Neuro: AOx3, no focal deficits, PERRL, EOMI, face symmetric, SILT, str 5/5 Results & Data Results & Data Vital Signs (Past 12 Hours) Vital Signs Temp Pulse Resp BP Pulse Ox O2 Del Method 09/26/24 12:23 54 L 09/26/24 11:18 99 Room Air 09/26/24 10:52 36.7 C 60 18 178/65 H 99 Room Air Supervising Physician Co-Signing Physician Notes I personally examined the patient and verified all steele points of history and exam, discussed case, and agree with decision making with Dr Mclean Comes in with bilateral paresthesiashas been happening off and on recently. Bilateral face, and bilateral hands/forearms. Happening more more frequently. Happened today at [facility]. Was happening even worse on the way into the ER in the car. No clear triggers to cause, no clear alleviating factors to make it go away. Is always bilateral. Seems to maybe be unrelated but also notes that he has been having a little bit of off-again/on again dyspnea on exertion. Sometimes, however, he is able to exert reasonably well with no symptoms (he notes yesterday he weed blacked for quite a while with no symptoms). On directed questioning, he Does not drink a whole lot of fluids, and sometimes may go most of the day on very little more than his morning coffee. He was starting to wonder if dehydration could be part of his symptoms. Vitals noted, in general he is awake and alert pleasant no distress. HEENT normocephalic atraumatic mucous membranes moist. Breathing unlabored no accessory muscle use good effort. Skin without rashes pallor or icterus. Neuro without focal deficits. Labs and diagnostics noted. Transient paresthesiasgiven that they are bilateral and almost entirely symmetriccerebrovascular ischemia is exceedingly unlikely. Discussed with patient that most commonly the "mechanism" causing paresthesias symmetric like this is some form of hyperventilationand therefore the main diagnostic workup would be trying to get to the "root cause" of what would be causing hyperventilation. We discussed anxietyneither of us feel that anxiety is the culprit with him. We discussed anginaif his dyspnea on exertion was causing him to feel more short of breath and that was causing hyperventilation that would certainly be diagnosis of exclusionand in that respect we have ordered a stress echo. However, we discussed that the most likely culprit is running chronically dehydratedthat will make his body have to work a lot harder whenever he exerts which would then cause a degree of hyperventilation, which would be the most likely culprit for the paresthesias. We discussed that when people get older the hormones that make us feel thirsty often start to wear off, and therefore he should review staying hydrated as much more of a "exercise of accounting" and placating thirst. Discussed a reasonable (albeit arbitrary) goal of 60-80 ounces of fluid a day, and another 5-10 ounces of fluid per hour of exercise or working in the heat. If his stress test is negative, anticipate home tomorrow. Resident Activity Tracking Resident Involvement: Resident Care Provided Care Provided: Adult Hospital Medicine (5) Hypertension Hypertension type: primary hypertension Qualified Code(s): I10 - Essential (primary) hypertension (7) Hyperlipidemia Hyperlipidemia type: mixed hyperlipidemia Qualified Code(s): E78.2 - Mixed hyperlipidemia
--- NOTE | 2024-09-26 15:56 | Billing Data ---
Date of Service September 26, 2024 Coding Level of Care Code 59217 INT INP/OBS CARE
[2024-09-26] MEDS ORDERED: POLYETHYLENE (MIRALAX) 17 GM PACK PO PRN (16:30)
[2024-09-26] MEDS ORDERED: ONDANSETRON INJ 2 MG/ML 2 ML VIAL IV PRN (16:30)
[2024-09-26] MEDS ORDERED: NITROGLYCERIN SL 0.4 MG/TAB TAB SL PRN (16:30)
[2024-09-26] MEDS ORDERED: ACETAMINOPHEN 325 MG TAB PO PRN (16:30)
[2024-09-26] MEDS: Nursing to Pharmacy Communication SCH (20:19)
[2024-09-26] MEDS: amLODIPine BESYLATE 5 MG TAB PO SCH (20:30)
[2024-09-26] MEDS: PRAVASTATIN SOD 40 MG TAB PO SCH (20:30)
[2024-09-26] MEDS: METOPROLOL SUCC 25MG EXT REL TAB PO SCH (20:34)
--- NOTE | 2024-09-27 07:31 | Hospitalist Progress Note ---
Date of Service September 27, 2024 Assessment & Plan (1) Paresthesias: (2) Generalized weakness: (3) Chest pain: Plan Roberto is an 79yo M with h/o HTN, HLD, GERD, CAD s/p LEE ANN, CKD3, lumbar stenosis, OA, and BPH who presented with lightheadedness and numbness of face and arms. He has 2 other ED visits in the past week for the same issue. He also complains of dyspnea on exertion and weakness/fatigue during the same period admitted for thorough workup of the etiology of these symptoms. #Dyspnea on exertion /CAD -3 vessel CAD S/P LEE ANN(Dec 2023) -Troponin- 8.3 -EKG (09/26): Notable for bradycardia -Stress Echo done today. Reports not back yet -Nitrostat 0.4 mg PRN, Supplemental O2 as needed -Continue aspirin and Plavix -Following with [place] [facility]. Has next appointment in the November #Mild hyponatremia #Poor PO Intake #Weakness - Pt with poor oral intake despite moderate activity level. No abnormal weight loss, n/v, imbalance, or fall - Encourage oral intake; HH diet, supplement as needed - Na today: 135 - PT/OT today. Recommended he can return home #Paresthesias # lightheadedness - Broad ddx: most likely CAD +/- deconditioning; less likely, electrolyte abnormality, vitamin deficiency, TIA/CVA, radiculopathy - CT head with no acute abnormality; CTA head/neck showed no stenosis or occlusion - If this is an anginal equivalent, hopeful resolution with appropriate management of CAD - If no acute cardiac concern, focus on pt's strength and nutrition as above -Vitamin B12: WNL HTN - continue amlodipine, valsartan HLD - continue statin Hyperthyroidism - continue metoprolol, methimazole GERD - continue Protonix CKD3 - Cr at baseline ~1.5 Diet: HH Dispo: admit to med-tele; likely d/c home but may need brief rehab Code: Full Admission and Anticipated Discharge Date Admission Date: September 26, 2024 Supervising Physician Co-Signing Physician Notes I personally examined the patient and verified steele points of history and exam, discussed case, and agree with decision making and plan documented by Dr. Cm. Strong history of cardiovascular disease, awaiting results of stress testing. Unclear etiology of bilateral facial and upper extremity paresthesias, so far workup has been unrevealing with CT head and brain, head and neck CTA negative for acute findings. No overt electrolyte dysfunctions. PT recommends return home. Will monitor overnight and consider discharge tomorrow with continued improvement. Subjective Overnight events: Slept well. No any overnight events Ongoing symptoms:Has paresthesia and numbness in bilateral cheeks that started about a week ago. Mild headache yesterday evening. No dyspnea on rest currently. Denies chest pain, neck pain, sore throat New symptoms: Denies any new symptoms Review of Systems Review of Systems: as per HPI Physical Exam Physical Exam: Constitutional: Well appearing, No acute distress, PILCCOD: Negative HEENT: Atraumatic, Normocephalic, No conjunctival injection CVS: S1 S2 no murmur, Regular Rhythm, no LE edema Respiratory: BL equal air entry with NVBS. No rhonchi, wheezes, or crackles. No increased work of breathing GI: Soft, Nondistended, Nontender, Normal Bowel sounds + MSK: No gross deformities noted Skin: Warm, Dry, No rashes Neuro: Alert, Oriented to TPP, No Focal deficit Psych: Mood and Affect congruent, Cooperative on exam Results & Data Results & Data Vital Signs (Past 12 Hours) Vital Signs Temp Pulse Pulse Resp BP Pulse Ox O2 Del Method 09/27/24 07:20 52 L 09/27/24 03:47 36.5 C 60 18 131/69 97 Room Air 09/26/24 23:52 36.6 C 60 18 168/55 H 97 Room Air 09/26/24 21:45 56 L 09/26/24 19:45 Room Air 09/26/24 19:40 Room Air 09/26/24 19:35 36.4 C L 59 L 18 152/55 H 96 Room Air Resident Activity Tracking Resident Involvement: Resident Care Provided Care Provided: Adult Hospital Medicine (3) Chest pain Chest pain type: unspecified Qualified Code(s): R07.9 - Chest pain, unspecified
[2024-09-27] MEDS: CLOPIDOGREL BISULFATE 75 MG TAB PO SCH (08:32)
[2024-09-27] MEDS: VALSARTAN 80 MG TAB PO SCH (08:32)
[2024-09-27] MEDS: ASPIRIN 81 MG CHEW PO SCH (08:32)
[2024-09-27] MEDS: PANTOprazole 40 MG TAB PO SCH (08:33)
[2024-09-27] MEDS ORDERED: amLODIPine BESYLATE 5 MG TAB PO SCH ×2 (09:00)
[2024-09-27 09:45] LABS: Basophils # (auto) 0.03 K/uL (0.00-0.20); Basophils % (auto) 0.5 %; Eosinophils # (auto) 0.24 K/uL (0.00-0.50); Eosinophils % (auto) 4.2 %; Hematocrit (blood only) 38.4 % (42.0-52.0); Hemoglobin 13.1 g/dl (14.0-18.0); Immature Granulocytes # (auto) 0.01 K/uL (0.01-0.20); Immature Granulocytes % (auto) 0.2 %; Lymphocytes # (auto) 1.24 K/uL (1.20-3.40); Lymphocytes % (auto) 21.6 %; Mean Corpuscular Hgb Conc 34.1 g/dL (32.0-36.0); Mean Corpuscular Volume 93.7 fL (80.0-100.0); Mean Platelet Volume 9.7 fL (9.4-12.4); Monocytes # (auto) 0.68 K/uL (0.11-0.59); Monocytes % (auto) 11.8 %; Neutrophils # (auto) 3.55 K/uL (1.40-6.50); Neutrophils % (auto) 61.7 %; Platelet Count 191 K/uL (130-400); RDW Coefficient of Variation 12.6 % (11.5-14.5); RDW Standard Deviation 43.1 fL (36.4-46.3); White Blood Count 5.75 K/ul (4.8-10.8)
[2024-09-27 10:02] LABS: Calcium 9.8 mg/dl (8.6-10.3); Creatinine Clr Calc Pharmacy 36.7 ml/min; Potassium 4.3 mmol/L (3.5-5.1)
[2024-09-27 10:07] LABS: Troponin I High Sensitivity 8.3 pg/ml (0-20)
[2024-09-28 02:49] VITALS: RESP 18
--- NOTE | 2024-09-28 06:53 | Hospitalist Progress Note ---
Date of Service September 28, 2024 Assessment & Plan (1) Paresthesias: (2) Generalized weakness: (3) Chest pain: Plan Roberto is an 79yo M with h/o HTN, HLD, GERD, CAD s/p LEE ANN, CKD3, lumbar stenosis, OA, and BPH who presented with lightheadedness and numbness of face and arms. He has 2 other ED visits in the past week for the same issue. He also complains of dyspnea on exertion and weakness/fatigue during the same period admitted for thorough workup of the etiology of these symptoms. #Dyspnea on exertion /CAD -3 vessel CAD S/P LEE ANN(Dec 2023) -Troponin- 8.3 -EKG (09/26): Notable for bradycardia -Stress Echo done today. Reports not back yet -Nitrostat 0.4 mg PRN, Supplemental O2 as needed -Continue aspirin and Plavix -Following with [facility]. Has next appointment in the November #Mild hyponatremia #Poor PO Intake #Weakness - Pt with poor oral intake despite moderate activity level. No abnormal weight loss, n/v, imbalance, or fall - Encourage oral intake; HH diet, supplement as needed - Na today: 135 - PT/OT today. Recommended he can return home #Paresthesias # lightheadedness - Broad ddx: most likely CAD +/- deconditioning; less likely, electrolyte abnormality, vitamin deficiency, TIA/CVA, radiculopathy, dehydration - CT head with no acute abnormality; CTA head/neck showed no stenosis or occlusion - If this is an anginal equivalent, hopeful resolution with appropriate management of CAD - If no acute cardiac concern, focus on pt's strength and nutrition as above -Vitamin B12: WNL HTN - continue amlodipine, valsartan HLD - continue statin Hyperthyroidism - continue metoprolol, methimazole GERD - continue Protonix CKD3 - Cr at baseline ~1.5 Diet: HH Dispo: admit to med-tele; likely d/c home but may need brief rehab Code: Full Admission and Anticipated Discharge Date Admission Date: September 26, 2024 Supervising Physician Co-Signing Physician Notes I personally examined the patient and verified steele points of history and exam, discussed case, and agree with decision making and plan documented by Dr. Cm and Moose ANTONIO. See discharge summary dated 09/28/24. Subjective Overnight events: Slept well. No any overnight events Ongoing symptoms:Has intermittant paresthesia and numbness in bilateral cheeks (V1, V2 distribution) that started about a week ago. Denies pain with this sensation. With most recent episode that sent him to the ER, he noted numbness on the extensor sides of forearms. Patient noted he has difficulty hydrating throughout the day. Mild headache yesterday evening. No dyspnea on rest currently. Denies chest pain, neck pain, sore throat New symptoms: Denies any new symptoms Review of Systems Review of Systems: as per HPI Physical Exam Physical Exam: Constitutional: Well appearing, No acute distress, PILCCOD: Negative HEENT: Atraumatic, Normocephalic, No conjunctival injection CVS: S1 S2 no murmur, Regular Rhythm, no LE edema Respiratory: BL equal air entry with NVBS. No rhonchi, wheezes, or crackles. No increased work of breathing GI: Soft, Nondistended, Nontender, Normal Bowel sounds + MSK: No gross deformities noted Skin: Warm, Dry, No rashes Neuro: Alert, Oriented to TPP, No Focal deficit. Sensory function intact on all 4 limbs, motor 5/5 in all 4 extremities. Cranial enrves 2-12 intact Psych: Mood and Affect congruent, Cooperative on exam Results & Data Results & Data Vital Signs (Past 12 Hours) Vital Signs Temp Pulse Pulse Resp BP BP Pulse Ox 09/28/24 02:47 36.5 C 59 L 18 158/66 H 100 09/28/24 00:03 36.6 C 60 20 144/65 H 99 09/27/24 23:00 71 09/27/24 19:44 36.5 C 65 18 120/64 98 O2 Del Method 09/28/24 02:47 Room Air 09/28/24 00:03 Room Air 09/27/24 23:00 09/27/24 19:44 Room Air (3) Chest pain Chest pain type: unspecified Qualified Code(s): R07.9 - Chest pain, unspecified
[2024-09-28 07:59] VITALS: TEMP 97.9
[2024-09-28] MEDS: methIMAzole 5 MG TABLET PO SCH (09:04)
[2024-09-28 11:25] VITALS: O2SAT 100
--- NOTE | 2024-09-28 12:17 | XCELERA ---
[id number]
[2024-09-28 13:07] VITALS: BP 144/65
[2024-09-28 13:51] VITALS: PULSE 62
--- NOTE | 2024-09-28 18:52 | Discharge Summary ---
Date of Service September 28, 2024 Admission HPI Per Admitting Provider Roberto is an 79yo man with significant PMH, notable for 3-vessel CAD s/p LEE ANN from the Ostial to Distal LMCA. Since the cardiac cath in Dec 2023, he initially felt well, until sometime this spring. He reports the sx began relatively recently, most notably with generalized weakness and fatigue. He mentions not being very active over winter, and now having 2 acres and several pets to care for. He also admits to consuming very little food or water, and will sometimes go about his usual activities with just his morning coffee. He has been having shortness of breath with exertion, but denies chest pain or pressure, palpi tations, or dyspnea at rest. He has also intermittently had episodes consisting of lightheadedness along with numbness on arms and face (spreading outward from nose). He cannot think of particular trigger or any alleviating/aggravating factors. He does not experience similar sx in any other part of body. He says the lightheadedness not positional, and is not associated with dizziness, imbalance or abnormal gait. He has had no falls. No MEADOWS, visual disturbances, blurriness, changes in hearing, tinnitus, neck pain, heat/cold intolerance, abnormal weight change, sick sx. He has been seen in the ED last week for similar sx (on 09/22 and 09/24) but not admitted as sx resolved during visit and he felt comfortable being discharged. This time he says was his worst episode; son-in-law had to drive him here, and he does not feel stable to go home. He lives alone but says his daughter & son-in-law are currently staying with him. Reports he takes his meds as prescribed and there have been no recent changes. In the ED today, he was given 1L nss and found to have negative orthostatics, normal CTA head/neck and CT head, labs notable for low Na of 133 and mild normocytic anemia. Admission Exam Per Admitting Provider Constitutional: Patient appears in no acute distress. HENT: Head: Normocephalic and atraumatic. Eyes: EOMI, PERRL Mouth/Throat: Mucous membranes moist. Neck: Trachea midline. Neck supple. Cardiovascular: RRR, No murmurs, rubs or gallops. Intact distal pulses. Pulmonary/Chest: No respiratory distress. Breath sounds clear and equal bilaterally. No wheezes or rales. Abdominal: Abdomen soft, no tenderness, rebound or guarding. Musculoskeletal: No edema, tenderness or deformity noted. Skin: Warm and dry. No rash, erythema, pallor or cyanosis Psychiatric: Appropriate mood and affect for situation. Principal Diagnosis 1. Dyspnea on exertion 2.Mild hyponatremia 3. Paresthesia Discharge Exam Constitutional WD/WN, vitals as above well developed; no acute distress Eyes PERRL, conjunctivae normal, anicteric sclerae ENMT external ear and nose normal, oropharynx normal Ears: no hearing impairment Neck trachea midline, no thyromegaly trachea midline Respiratory normal respiratory effort, lungs clear to auscultation normal respiratory effort and + respiratory distress; no labored breathing and no retractions Auscultation: lungs clear to auscultation bilaterally Cardiovascular RRR, no murmur, no edema Rate/Rhythm: regular rate and regular rhythm Chest (Breasts) normal inspection/palpation of breasts Chest: normal inspection of chest Discharge Data Allergies Allergy/AdvReac Type Severity Reaction Status Date / Time morphine Allergy Severe Anaphylaxis Verified 08/17/24 09:10 simvastatin AdvReac Intermediate MYALGIA Verified 08/17/24 09:10 Consultations 09/26/24 12:35 ED Decision to Admit Stat Ordered Studies 09/26/24 10:56 CT head/brain wo con Stat CTA head w con [CT angio head w con] Stat CTA neck with con [CT angio neck with con] Stat Hospital Course (1) Lightheadedness: (2) Paresthesias: (3) Lightheadedness: Plan #Dyspnea on exertion /CAD -3 vessel CAD S/P LEE ANN(Dec 2023) -Troponin- 8.3 -EKG (09/26): Notable for bradycardia -Stress Echo done today. Reports not back yet -Nitrostat 0.4 mg PRN, Supplemental O2 as needed -Continue aspirin and Plavix -Following with [place] cardiology. Has next appointment in the November -Stress Echocardiogram didn't reveal any abnormalities -Discharge today with follow up with PCP within next week #Mild hyponatremia #Poor PO Intake #Weakness - Pt with poor oral intake despite moderate activity level. No abnormal weight loss, n/v, imbalance, or fall - Encourage oral intake; HH diet, supplement as needed - Na today: 135 - PT/OT today. Recommended he can return home #Paresthesias # lightheadedness - Broad ddx: most likely CAD +/- deconditioning; less likely, electrolyte abnormality, vitamin deficiency, TIA/CVA, radiculopathy - CT head with no acute abnormality; CTA head/neck showed no stenosis or occlusion - If this is an anginal equivalent, hopeful resolution with appropriate management of CAD - If no acute cardiac concern, focus on pt's strength and nutrition as above -Vitamin B12: WNL HTN - continue amlodipine, valsartan HLD - continue statin Hyperthyroidism - continue metoprolol, methimazole GERD - continue Protonix CKD3 - Cr at baseline ~1.5 Diet: HH Dispo: admit to med-tele; likely d/c home but may need brief rehab Code: Full Total Time Total Time Spent Total Time Spent (In Minutes): See attending attestation Discharge Plan Discharge Items Patient Disposition: Home - Self-Care Reason For Visit: LIGHTHEADEDNESS, PARESTHESIAS Discharge Diagnosis: 1. Dyspnea on exertion 2.Mild hyponatremia 3. Paresthesia Condition on Discharge: Fair Activity: Resume your previous activity Non-emergency contact: Primary Care Provider Call non-emergency contact if: you have any medication questions, your symptoms worsen, your pain is not controlled and your pain is worsening Follow-up/Referrals: Wilfrid Miranda DO [Primary Care Provider] - 10/05/24 9:30 am Diet: Heart Healthy Addtl Attending Provider Instructions: You were admitted to the hospital for chest pain, shortness of breath on exertion and palpitation. EKG was done in the ER and no any acute changes was noted. Troponin was within normal limit. Stress Echocardiogram was done and no any abnormalities was seen. Today on our assessment you don't have any symptoms of chest pain, difficulty breathing and has reassuring workup. Stable to go home A discharge summary will be sent to your primary care physician to ensure continuity of care.Please bring this discharge summary with you to your next office appointment so that your provider can review it at that time. Follow-up appointments: Make a follow-up appointment with your PCP within the next week. It is very important that you follow up with them shortly after discharge from the hospital.] Keep all your follow-up appointments as already scheduled. If you cannot make an appointment, notify your provider. Medications: Your medication list has been reviewed and reconciled upon discharge to ensure accuracy and continuity of care. Please continue all your home Meds as you were taking. We haven't made any changes in your medications in this visit. Take your medications as instructed; do not skip a dose of your medicines. Make sure all of your doctors know every medicine you are taking (including [id number] medicines, vitamins, and supplements). Call your primary care provider before taking any new medicines (including overthe- counter medicines, vitamins, and supplements), because some of these may interact with your current medications, or may make your symptoms worse. Tell your primary care provider if you cannot afford your medications. CONTACT YOUR PRIMARY CARE PROVIDER if you experience any of the following: Severe substernal chest pain radiating to jaw Increase in shortness of breath Difficulty following your treatment plan, or difficulty taking medications CALL 911 OR GO TO THE EMERGENCY DEPARTMENT if you experience any of the following: Sudden, severe abdominal pain or nausea/vomiting Severe chest pain, or chest pain that radiates (moves) to your jaw or arm Sudden, severe shortness of breath or difficulty breathing Thank you for allowing us to participate in your care. . Pending Studies at Discharge: No Stand-Alone Forms: My [facility] [employer], Smoking Cessation Medications and DC Order Prescriptions: Continued methimazole 5 mg tablet 5 mg PO Q OTHER DAY 90 Days Qty: 45 3RF Rx Instructions: TAKE 1 TABLET EVERY OTHER DAY valsartan 160 mg tablet 160 mg PO DAILY Qty: 90 3RF clopidogrel 75 mg tablet 75 mg PO DAILY Qty: 90 3RF pantoprazole 40 mg tablet,delayed release (DR/EC) 40 mg PO DAILY Qty: 90 3RF cholecalciferol (vitamin D3) 25 mcg (1,000 unit) capsule 25 mcg PO DAILY Rx Instructions: 09/26-otc unable to verify vpxspfatmb-tloddsmofjzud-tvye 50-325-40 mg tablet 1 tab PO Q6H PRN (Reason: Headache) Rx Instructions: 09/26-otc unable to verify psyllium husk [Metamucil] 0.4 gram capsule 0.4 g PO DAILY Rx Instructions: 09/26-otc unable to verify nitroglycerin 0.4 mg tablet, sublingual 0.4 mg sublingual Q5M PRN (Reason: Chest Pain) Rx Instructions: do not exceed 3 doses per episode pravastatin 80 mg tablet 80 mg PO QPM Qty: 90 3RF aspirin 81 mg tablet,chewable 81 mg PO DAILY Patient Comments: [facility]FIR[facility] W/ PT [facility]12/19/23 Rx Instructions: 09/26-otc unable to verify [place]-3 350 mg-235 mg- 90 mg-597 mg Capsule,Delayed Release(Dr/Ec) 1 tab PO BID Rx Instructions: 09/26-otc unable to verify B-complex with vitamin C Tablet 1 tab PO DAILY Rx Instructions: 09/26-otc unable to verify amlodipine 5 mg tablet 5 mg PO DAILY Rx Instructions: TAKE 1 TABLET DAILY metoprolol succinate 25 mg tablet extended release 24 hr 37.5 mg PO DAILY Rx Instructions: TAKE 1 AND 1/2 TABLETS DAILY IN THE EVENING Discharge Orders: Discharge Order (Routine); Ordered 09/28/24 Ordered By: Adan Cm Admission Data Admit Date/Time: 09/26/24 14:48 Attending Provider: Daniela Herron Admit Provider: Bell Mclean Primary Care Provider: Wilfrid Miranda Other Providers: [facility]; Bell Mclean; Adan Cm; Miguel Martinez Other Interventions: Discharge Summary Assessment (RN) Last Done: 09/28/24 13:07 Supervising Physician Co-Signing Physician Notes I personally examined the patient and verified steele points of history and exam, discussed case, and agree with decision making and plan documented by Dr. Cm. Strong history of cardiovascular disease, stress echo without ischemia. Bilateral facial and upper extremity paresthesias present prior to admission resolved. Unrevealing with CT head and brain, head and neck CTA negative for acute findings. No overt electrolyte dysfunctions. PT recommends return home. Patient feeling great today, ambulating the halls, ready to go home. Revewed importance of hydration with water throughout the day, patient states he will work on it. Patient advised to followup with cardiology at [place] and PCP Dr. Miranda at [facility]. Total attending time 32 minutes
--- NOTE | 2024-09-29 12:31 | Electrocardiogram Report ---
Test Reason : Blood Pressure : */* mmHG Vent. Rate : 59 BPM Atrial Rate : 59 BPM P-R Int : 162 ms QRS Dur : 86 ms QT Int : 402 ms P-R-T Axes : 25 20 75 degrees QTcB Int : 397 ms Sinus bradycardia Otherwise normal ECG When compared with ECG of 24-Sep-2024 11:57, No significant change was found Confirmed by Chad Suárez ([id number]) on 09/29/2024 12:30:51 PM Referred By: REFERRED SELF Confirmed By: Chad Suárez
== END 2024-09-28 13:57 | disposition home or self-care (01) | DRG 948 ==
LOC: ED 10:48 → SUATTDRO 14:48 → 2N 14:48
DX: Z79.82 Long term (current) use of aspirin; G47.33 Obstructive sleep apnea (adult) (pediatric); K21.9 Gastro-esophageal reflux disease without esophagitis; Z88.8 Allergy status to other drugs, medicaments and biological substances; R20.0 Anesthesia of skin; E78.5 Hyperlipidemia, unspecified; R53.1 Weakness; R20.2 Paresthesia of skin; I25.10 Atherosclerotic heart disease of native coronary artery without angina pectoris; Z79.899 Other long term (current) drug therapy; E87.1 Hypo-osmolality and hyponatremia; N40.0 Benign prostatic hyperplasia without lower urinary tract symptoms; Z87.891 Personal history of nicotine dependence; I12.9 Hypertensive chronic kidney disease with stage 1 through stage 4 chronic kidney disease, or unspecified chronic kidney disease; R42 Dizziness and giddiness; R06.09 Other forms of dyspnea; N18.30 Chronic kidney disease, stage 3 unspecified; Z88.6 Allergy status to analgesic agent; E03.9 Hypothyroidism, unspecified